=== PATIENT | male | born 1945 | race Caucasian/White ===

== ENCOUNTER 2021-07-15 09:26 | Outpatient (REF) | payer OTHER, SELFPAY ==
[2021-07-15 11:01] LABS: Hematocrit 42.3 % (42.0-52.0); Hemoglobin 13.8 g/dl (14.0-18.0); Mean Corpuscular HGB Conc 32.6 g/dl (31.0-36.0); Mean Corpuscular Hemoglobin 32.4 pg (27.0-33.0); Mean Corpuscular Volume 99.3 fL (80.0-98.0); Mean Platelet Volume 11.2 fL (9.4-12.4); Platelet Count 200 X10*3/uL (160-400); Red Blood Count 4.26 X10*6/uL (4.60-5.80); Red Cell Distribution Width 12.3 % (11.0-16.0); White Blood Count 4.9 X10*3/uL (4.8-10.8)
[2021-07-15 11:58] LABS: Alanine Aminotransferase 19 U/L (0-40); Albumin Level 4.1 g/dL (3.5-5.0); Alkaline Phosphatase 48 U/L (39-117); Anion Gap 13 (12-20); Aspartate Amino Transferase 26 U/L (5-37); Bilirubin Total 0.8 mg/dL (0.0-1.0); Blood Urea Nitrogen 11 mg/dL (9-16); Calcium 9.1 mg/dL (8.4-10.2); Carbon Dioxide 27 mmol/L (22-29); Chloride 107 mmol/L (96-108); Cholesterol 178 mg/dL; Estimated Glomerular Filt Rate > 60; Glucose Fasting 93 mg/dL (60-99); HDL Cholesterol 57 mg/dL; LDL Cholesterol Calculated 98 mg/dl; Potassium 4.5 mmol/L (3.3-5.1); Sodium 142 mmol/L (135-145); Total Protein 6.4 g/dL (6.5-8.0); Triglycerides 115 mg/dL
== END 2021-07-15 09:27 | disposition home or self-care (01) ==
LOC: HO.MANLDS 09:26
PROVIDERS: PCP Internal Medicine; Visit Provider Internal Medicine
DX: Z12.5 Encounter for screening for malignant neoplasm of prostate (principal); C61 Malignant neoplasm of prostate; I10 Essential (primary) hypertension
CPT/HCPCS: 36415; 80053; 80061; 84153; 85027

== ENCOUNTER 2023-03-13 09:35 | Outpatient (REF) | payer OTHER, SELFPAY ==
[2023-03-13 14:34] LABS: MANUAL DIFF FLAG NO
[2023-03-13 14:49] LABS: Basophils Absolute Auto 0.1 X10*3/uL (0.0-0.2); Basophils Percent Auto 1.5 % (0-2); Eosinophils Absolute Auto 0.2 X10*3/uL (0.0-0.4); Eosinophils Percent Auto 5.7 % (0-4); Hematocrit 41.8 % (42.0-52.0); Hemoglobin 13.5 g/dl (14.0-18.0); Imm Gran Abs Auto 0.01 X10*3/uL (0.00-0.03); Imm Gran Pct Auto 0.3 % (0.0-0.4); Lymphocytes Absolute Auto 0.9 X10*3/uL (1.2-4.9); Lymphocytes Percent Auto 28.3 % (20-40); Mean Corpuscular HGB Conc 32.3 g/dl (31.0-36.0); Mean Corpuscular Hemoglobin 31.6 pg (27.0-33.0); Mean Corpuscular Volume 97.9 fL (80.0-98.0); Mean Platelet Volume 10.8 fL (9.4-12.4); Monocytes Absolute Auto 0.5 X10*3/uL (0.1-1.2); Monocytes Percent Auto 15.1 % (2-11); Neutrophils Absolute Auto 1.6 x10*3/uL (2.0-8.3); Neutrophils Percent Auto 49.1 % (45-73); Platelet Count 197 X10*3/uL (160-400); Red Blood Count 4.27 X10*6/uL (4.60-5.80); Red Cell Distribution Width 12.6 % (11.0-16.0); White Blood Count 3.3 X10*3/uL (4.8-10.8)
[2023-03-13 15:27] LABS: Alanine Aminotransferase 21 U/L (0-40); Albumin Level 3.8 g/dL (3.5-5.0); Alkaline Phosphatase 55 U/L (39-117); Anion Gap 8 (12-20); Aspartate Amino Transferase 28 U/L (5-37); Bilirubin Total 0.7 mg/dL (0.0-1.0); Blood Urea Nitrogen 13 mg/dL (9-16); Carbon Dioxide 28 mmol/L (22-29); Chloride 110 mmol/L (96-108); Cholesterol 160 mg/dL; Estimated Glomerular Filt Rate > 60; Glucose Random 92 mg/dL (60-115); HDL Cholesterol 57 mg/dL; LDL Cholesterol Calculated 92 mg/dl; Potassium 4.1 mmol/L (3.3-5.1); Sodium 142 mmol/L (135-145); Total Protein 6.2 g/dL (6.5-8.0); Triglycerides 59 mg/dL
[2023-03-13 15:57] LABS: Vitamin D 25-OH Total 50.1 ng/mL (>30)
[2023-03-13 16:03] LABS: Prostate Specific Antigen 1.82 ng/mL (<0.05-4.0)
== END 2023-03-13 09:36 | disposition home or self-care (01) ==
LOC: HO.MANLDS 09:35
PROVIDERS: Visit Provider Internal Medicine
DX: Z12.5 Encounter for screening for malignant neoplasm of prostate (principal); E78.00 Pure hypercholesterolemia, unspecified
CPT/HCPCS: 36415; 80053; 80061; 82306; 84153; 85025

== ENCOUNTER 2025-06-19 09:22 | Outpatient (REF) | payer OTHER, SELFPAY ==
--- OUTSIDE RECORDS SUMMARY | 2025-06-19 10:26 | XMS_ITS | Encounter Summary ---
Author Organization [facility] Address [address] [place] [address] Phone Care Team Providers Care Offset Press Assistant Name Role Phone Sanya Barkley Primary Care Provider [phone] Encounter Details Date Type Department Care Team (Late st Contact Info) Description 03/22/2025 Procedure Pass [facility], Ct Scan - [facility] [address] [place] [address] Social History Tobacco Use Types Packs/Day Years Used Date Smoking Tobacco: Former Cigarettes Q uit: 1988 Smokeless Tobacco: Never Alcohol Use Standard Drinks/Week Comments Yes 14 (1 standard drink = 0.6 oz pu re alcohol) 2 beers per day Education Answer Date Recorded Are you interested in more education? Not on marquis e 12/19/2022 Are you concerned about learning? Not on file 12/19/2022 No 12/19/2022 No 12/19/2022 Food Answer Date Recorded Within the past 6 months we worried whether our food would run out before we got money to buy more. Never True 03/11/2025 Within the past 6 months the food we bought just didn't last and we didn't have enough money to get more. Never True Residential Stability Answer Date Recor ded What is your housing situation today? I have tho sing 03/11/2025 How many times have you move d in the past 12 months? Zero (I did not move) 03/11/2025 Paying for Meds Answer Date Recorded Do you have trouble paying for medicines? No 03/11/2025 Paying Utility Bills Answer Date Record ed Do you have trouble paying your heating or elect ricity bill? No 03/11/2025 Transportation Answer Date Recorded Has the lack of transportati on kept you from medical appointments or from getting medications? No 03/11/2025 Digital Access Answer Date Recorded No 03/11/2025 Yes 03/11/2025 Do you have reliable internet access at home? Ye s 03/11/2025 Do you have a device (e.g., phone, tablet, computer) with a working camera? Yes 03/11/2025 Intimate Partner Violence Answer Date R ecorded Are you denied basic needs s uch as food, clothing, or medical care? No 03/11/2025 In the past 12 months have y ou been in a relationship with a person who hurts, threatens, or tries to control you? No 03/11/2025 Are you denied basic needs s uch as food, clothing, or medical care? No 03/11/2025 In the past 12 months have y ou been in a relationship with a person who hurts, threatens, or tries to control you? No 03/11/2025 Sex and Gender Information Value Date Recorded Sex Assigned at Not on file Legal Sex Male 10:07 PM EDT Gender Identity Not on file Sexual Orientation Not on file documented as of this encounter Plan of Treatment Not on file documented as of this encounter Visit Diagnoses Not on filedocumented in this encounter Care Teams Offset Press Assistant Relationship Specialty Start Date End Date Sanya Barkley DO [address] [place] [address] PCP - General 06/09/17 documented as of this encounter Additional Source Comments The information contained in this document represents components of the legal health record. It is not the complete legal health record.[facility]
--- OUTSIDE RECORDS SUMMARY | 2025-06-19 10:26 | XMS_ITS | Encounter Summary ---
Author Organization [facility] Address [address] [place] [address] Phone Care Team Providers Care Health And Safety Specialist Name Role Phone Sanya Barkley Primary Care Provider [phone] Encounter Details Date Type Department Care Team (Late st Contact Info) Description 05/01/2025 Procedure Pass OR Admitting Dept - Virtual Department [address] [place] [address] Social History Tobacco Use Types Packs/Day Years [...] as food, clothing, or medical care? No 05/01/2025 In the past 12 months have y ou been in a relationship with a person who hurts, threatens, or tries to control you? No 05/01/2025 Are you denied basic needs s uch as food, clothing, or medical care? No 05/01/2025 In the past 12 months have y ou been in a relationship with a person who hurts, threatens, or tries to control you? No 05/01/2025 Sex and Gender Information Value Date Recorded Sex Assigned at Not on file Legal Sex Male 10:07 PM EDT Gender Identity Not on file Sexual Orientation Not on file documented as of this encounter Plan of Treatment Not on file documented as of this encounter Visit Diagnoses Not on filedocumented in this encounter Care Teams Health And Safety Specialist Relationship Specialty Start Date End Date Sanya Barkley DO [address] [place] [address] PCP - General 06/09/17 documented as of this encounter Additional Source Comments The information contained in this document represents components of the legal health record. It is not the complete legal health record.[facility]
--- OUTSIDE RECORDS SUMMARY | 2025-06-19 10:26 | XMS_ITS | Encounter Summary ---
Author Organization [facility] Address [address] [place] [address] Phone Care Team Providers Care Blade Operator Name Role Phone Sanya Barkley DO Primary Care Provider [phone] Encounter Details Date Type Department Care Team (Late st Contact Info) Description 08/03/2018 Ancillary Orders Virtual Department [address] [place] [address] Nehal Joseph PA-C [address] [place] [address] [email or web address] Pain and swelling of left lower leg Social History Tobacco Use Types Packs/Day Years Used Date Smoking Tobacco: Never Assessed Sex and Gender Information Value Date Recorded Sex Assigned at Not on file Legal Sex Male 10:07 PM EDT Gender Identity Not on file Sexual Orientation Not on file documented as of this encounter Plan of Treatment Not on file documented as of this encounter Results * US Lower Extremity Veins Duplex (Left) (08/03/2018 4:47 PM EST) Anatomical Region Laterality Modality Hip Left, Thigh Left, Knee L eft, Leg Left, Ankle Left, Foot Left Ultrasound 08/03/2018 5:33 PM EST Impressions 08/03/2018 5:34 PM EST No evidence of DVT. POS [id number] POS [id number] Narrative 08/03/2018 5:34 PM EST Comparison:None Combined real-time, color flow and Doppler evaluation of the deep venous system of the left leg shows readily compressible veins with a normal Doppler waveform and easily elicited augmentation from the groin through the trifurcation vessels into the mid calf. No popliteal cyst is apparent. Procedure Note José Miguel Stewart MD - 08/03/2018 Comparison:None Combined real-time, color flow and Doppler evaluation of the deep venoussystem of the left leg shows readily compressible veins with a normalDoppler waveform and easily elicited augmentation from the groin throughthe trifurcation vessels into the mid calf. No popliteal cyst is apparent. IMPRESSION: No evidence of DVT. POS [id number] POS [id number] November Opal AGUERO CV US VASCULAR Final Result documented in this encounter Visit Diagnoses Diagnosis Pain and swelling of left lower leg Pain and swelling of left lower leg documented in this encounter Care Teams Blade Operator Relationship Specialty Start Date End Date Sanya Barkley DO [address] [place] [address] [email or web address] PCP - General 06/09/17 documented as of this encounter Additional Source Comments The information contained in this document represents components of the legal health record. It is not the complete legal health record.[facility]
--- OUTSIDE RECORDS SUMMARY | 2025-06-19 10:26 | XMS_ITS | Encounter Summary ---
Author Organization [facility] Address [address] [place] [address] Phone Care Team Providers Care Installation Coordinator Name Role Phone Sanya Barkley DO Primary Care Provider [phone] Encounter Details Date Type Department Care Team ([facility] st Contact Info) Description 04/28/2025 Transcribe Orders [facility] Pharmacy Department Virtual Deparment [address] [place] [address] Sanya Barkley DO [address] [facility] [address] [place] [address] [email or web address] Social History Tobacco Use Types Packs/Day Years [...] on filedocumented in this encounter Care Teams Installation Coordinator Relationship Specialty Start Date End Date Sanya Barkley DO [address] [place] [address] PCP - General 06/09/17 documented as of this encounter Additional Source Comments The information contained in this document represents components of the legal health record. It is not the complete legal health record.[facility]
--- OUTSIDE RECORDS SUMMARY | 2025-06-19 10:26 | XMS_ITS | Encounter Summary ---
Author Organization [facility] Address [address] [place] [address] Phone Care Team Providers Care Crane Oiler Name Role Phone Sanya Barkley DO Primary Care Provider [phone] Encounter Details Date Type Department Care Team ([facility] st Contact Info) Description 10/04/2018 Ancillary Orders Virtual Department [address] [place] [address] Sanya Barkley DO [address] [facility] [place] [address] [place] [address] Screening for AAA (abdominal aortic aneurysm); Encounter for screening for cardiovascular disorders Social History Tobacco Use Types Packs/Day Years Used Date Smoking Tobacco: Never Assessed Sex and Gender Information Value Date Recorded Sex Assigned at Not on file Legal Sex Male 10:07 PM EDT Gender Identity Not on file Sexual Orientation Not on file documented as of this encounter Plan of Treatment Not on file documented as of this encounter Results * US Abdominal Aortic Screening (11/05/2018 8:03 AM EDT) Anatomical Region Laterality Modality Abdomen Ultrasound 11/05/2018 8:36 AM EDT Impressions 11/05/2018 8:37 AM EDT No evidence of abdominal aortic aneurysm. POS - [id number] Narrative 11/05/2018 8:37 AM EDT Screening study of the aorta is performed. There does not appear to be aneurysmal dilatation of the aorta with aorta measuring approximately 1.7 cm along its visualized length. Both common iliac arteries are measured at approximately 1 centimeter in diameter along the proximal portions. Procedure Note Nita Slater MD - 11/05/2018 Screening study of the aorta is performed. There does not appear to beaneurysmal dilatation of the aorta with aorta measuring approximately 1.7cm along its visualized length. Both common iliac arteries are measured atapproximately 1 centimeter in diameter along the proximal portions. IMPRESSION: No evidence of abdominal aortic aneurysm. POS - [id number] us Sanya Barkley DO IMG US ABDOMEN Final Result documented in this encounter Visit Diagnoses Diagnosis Screening for AAA (abdominal aortic aneurysm) Screening for other and unspecified cardiovascular conditions Encounter for screening for cardiovascular disorders Screening for AAA (abdominal aortic aneurysm) Screening for other and unspecified cardiovascular conditions Encounter for screening for cardiovascular disorders documented in this encounter Care Teams Crane Oiler Relationship Specialty Start Date End Date Sanya Barkley DO [address] [place] [address] PCP - General 06/09/17 documented as of this encounter Additional Source Comments The information contained in this document represents components of the legal health record. It is not the complete legal health record.[facility]
--- OUTSIDE RECORDS SUMMARY | 2025-06-19 10:27 | XMS_ITS | Encounter Summary ---
Author Organization [facility] Address [address] [facility] [address] [place] [address] Phone Care Team Providers Care Oak Tanner Name Role Phone Sanya Barkley DO Primary Care Provider [phone] Encounter Details Date Type Department Care Team (Late st Contact Info) Description 04/09/2020 Ancillary Orders Virtual Department [address] [place] [address] Elena Louie PA [address] [facility] [place] [address] Neck mass Social History Tobacco Use Types Packs/Day Years Used Date Smoking Tobacco: Former Cigarettes Q uit: 1989 Smokeless Tobacco: Never Alcohol Use Standard Drinks/Week Comments Yes 14 (1 standard drink = 0.6 oz pu re alcohol) 2 beers per day Sex and Gender Information Value Date Recorded Sex Assigned at Not on file Legal Sex Male 10:07 PM EDT Gender Identity Not on file Sexual Orientation Not on file documented as of this encounter Plan of Treatment Not on file documented as of this encounter Visit Diagnoses Diagnosis Neck mass Swelling, mass, or lump in head and neck documented in this encounter Care Teams Oak Tanner Relationship Specialty Start Date End Date Sanya Barkley DO [address] [place] [address] [place] [address] PCP - General 06/09/17 documented as of this encounter Additional Source Comments The information contained in this document represents components of the legal health record. It is not the complete legal health record.[facility]
--- OUTSIDE RECORDS SUMMARY | 2025-06-19 10:27 | XMS_ITS | Encounter Summary ---
Author Organization [facility] Address [address] [place] [address] Phone Care Team Providers Care House Designer Name Role Phone Sanya Barkley Primary Care Provider [phone] Encounter Details Date Type Department Care Team (Late st Contact Info) Description 04/12/2020 Ancillary Orders Virtual Department [address] [place] [address] Elena Louie PA [address] [facility] [place] [address] Neck mass Social History Tobacco Use Types [...] as of this encounter Results * US Thyroid Gland (04/12/2020 1:46 PM EDT) Anatomical Region Laterality Modality Neck, Head, Chest Ultrasound 04/12/2020 2:41 PM EDT Impressions 04/12/2020 2:46 PM EDT Area of palpable abnormality on the right appears to correspond to a submandibular lymph node. Normal thyroid gland. Narrative 04/12/2020 2:46 PM EDT US THYROID GLAND TECHNIQUE: Ultrasound of the thyroid. COMPARISON: FINDINGS: Right Thyroid: The right lobe measures 4.0 cm in sagittal dimension. Small lesion consistent with a lymph node with fatty hilum is seen in the right submandibular area, reportedly corresponding to the area of palpable abnormality measuring 1.7 SAG x0.7 AP x1.6 TR centimeters in size Left Thyroid: The left lobe measures 4.7 cm in sagittal dimension. No left sided adenopathy is detected. Parathyroid: A parathyroid adenoma is not identified. Procedure Note Deric Benavides MD - 04/12/2020 US THYROID GLAND TECHNIQUE: Ultrasound of the thyroid. COMPARISON: FINDINGS: Right Thyroid: The right lobe measures 4.0 cm in sagittal dimension. Small lesion consistent with a lymph node with fatty hilum is seen in theright submandibular area, reportedly corresponding to the area of palpableabnormality measuring 1.7 SAG x0.7 AP x1.6 TR centimeters in size Left Thyroid: The left lobe measures 4.7 cm in sagittal dimension. No left sided adenopathy is detected. Parathyroid: A parathyroid adenoma is not identified. IMPRESSION: Area of palpable abnormality on the right appears to correspond to asubmandibular lymph node. Normal thyroid gland. Elena NAVARRO IMG US THYROID Final Resul t documented in this encounter Visit Diagnoses Diagnosis Neck mass Swelling, mass, or lump in head and neck Neck mass Swelling, mass, or lump in head and neck documented in this encounter Care Teams House Designer Relationship Specialty Start Date End Date Sanya Barkley DO [address] [place] [address] PCP - General 06/09/17 documented as of this encounter Additional Source Comments The information contained in this document represents components of the legal health record. It is not the complete legal health record.[facility]
--- OUTSIDE RECORDS SUMMARY | 2025-06-19 10:27 | XMS_ITS | Encounter Summary ---
Author Organization [facility] Address [address] [place] [address] Phone Care Team Providers Care Film Processing Shift Supervisor Name Role Phone Sanya Barkley DO Primary Care Provider [phone] Reason for Referral * MRI/CAT Scan - Closed Specialty Diagnoses / Procedures Referred By Melvin galvan Referred To Contact Radiology Diagnoses Other nonspecific abnormal finding of lung field Procedures CT Chest CHG DIAGNOSTIC COMPUTED TOMOGRAPHY THORAX C-/C+ CHG DIAGNOSTIC COMPUTED TOMOGRAPHY THORAX W/CONTRAST CHG DIAGNOSTIC COMPUTED TOMOGRAPHY THORAX W/O CNTRST NJ HALEY CT TISS CHARAC I&R W/CNCRNT CT EXAM Sanya Barkley DO [address] [facility] [place] [address] Phone: tel: fax: [email or web address] Referral ID Status Reason Start Date Expiration Date Visits Re quested Visits Authorized [id number] Closed 05/04/2025 07/03/2025 1 1 Encounter Details Date Type Department Care Team (Late st Contact Info) Description 05/05/2025 Transcribe Orders Virtual Department [address] [place] [address] Sanya Barkley DO [address] [facility] [place] [address] [email or web address] Other nonspecific abnormal finding of lung field (Primary Dx) Social History Tobacco Use Types Packs/Day Years [...] documented as of this encounter Results * CT CHEST WITHOUT CONTRAST (05/30/2025 8:25 AM EDT) Anatomical Region Laterality Modality Chest Computed Tomogra phy 06/01/2025 2:03 PM EDT Impressions 06/01/2025 2:10 PM EDT Near interval resolution of left lower lobe groundglass opacity. Unchanged 8 mm groundglass opacity in the medial right upper lobe. Scattered 2-3 mm calcified pulmonary nodules, benign. Narrative 06/01/2025 2:[address] CHEST WITHOUT CONTRAST Referring clinician's provided indication for this examination in [facility]: Outside Radiology Order; opacity of lung on imaging study TECHNIQUE: Multidetector CT of the chest was performed without intravenous contrast using tailored dose modulation. COMPARISON: 03/29/25 FINDINGS: Devices/Tubes/Lines: None. Lungs: Near interval resolution of left lower lobe groundglass opacity. 8 mm groundglass opacity in the medial right upper lobe (4/86), unchanged. Scattered 2-3 mm calcified nodules. Central airways are patent. Pleura: No pleural effusion or pneumothorax. Mediastinum: Heart size is normal. Mild coronary artery calcifications. Calcifications of the aortic valve and mitral valve annulus. Thyroid gland is within normal limits. Lymph Nodes: No enlarged supraclavicular, axillary, mediastinal, or hilar lymph nodes. Upper Abdomen: Colonic diverticulosis. Chest Wall: No chest wall mass. Bones: Degenerative changes affect the visualized skeleton. Procedure Note David Fish MD - 06/01/2025 CT CHEST WITHOUT CONTRAST Referring clinician's provided indication for this examination in [facility]:Outside Radiology Order; opacity of lung on imaging study TECHNIQUE: Multidetector CT of the chest was performed without intravenouscontrast using tailored dose modulation. COMPARISON: 03/29/25 FINDINGS: Devices/Tubes/Lines: None. Lungs: Near interval resolution of left lower lobe groundglass opacity. 8mm groundglass opacity in the medial right upper lobe (4/86), unchanged.Scattered 2-3 mm calcified nodules. Central airways are patent. Pleura: No pleural effusion or pneumothorax. Mediastinum: Heart size is normal. Mild coronary artery calcifications.Calcifications of the aortic valve and mitral valve annulus. Thyroid glandis within normal limits. Lymph Nodes: No enlarged supraclavicular, axillary, mediastinal, or hilarlymph nodes. Upper Abdomen: Colonic diverticulosis. Chest Wall: No chest wall mass. Bones: Degenerative changes affect the visualized skeleton. IMPRESSION: Near interval resolution of left lower lobe groundglass opacity. Unchanged 8 mm groundglass opacity in the medial right upper lobe. Scattered 2-3 mm calcified pulmonary nodules, benign. us Sanya Barkley DO IMG CT CHEST Final Result documented in this encounter Visit Diagnoses Diagnosis Other nonspecific abnormal finding of lung field- Primary Other nonspecific abnormal finding of lung field documented in this encounter Care Teams Film Processing Shift Supervisor Relationship Specialty Start Date End Date Sanya Barkley DO [address] [place] [address] [email or web address] PCP - General 06/09/17 documented as of this encounter Additional Source Comments The information contained in this document represents components of the legal health record. It is not the complete legal health record.[facility]
--- OUTSIDE RECORDS SUMMARY | 2025-06-19 10:27 | XMS_ITS | Encounter Summary ---
Author Organization [facility] Address [address] [place] [address] Phone Care Team Providers Care Civil Structural Designer Name Role Phone Sanya Barkley Primary Care Provider [phone] Encounter Details Date Type Department Care Team (Late st Contact Info) Description 05/05/2025 Procedure Pass [facility], Ct Scan - [facility] [address] [place] [address] Social History Tobacco Use Types Packs/Day Years [...] on filedocumented in this encounter Care Teams Civil Structural Designer Relationship Specialty Start Date End Date Sanya Barkley DO [address] [place] [address] PCP - General 06/09/17 documented as of this encounter Additional Source Comments The information contained in this document represents components of the legal health record. It is not the complete legal health record.[facility]
--- OUTSIDE RECORDS SUMMARY | 2025-06-19 10:27 | XMS_ITS | Data Portability ---
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) MDM MODERATE MUST MEET 2 OUT OF 3 ELEMENTS: PROBLEMS, DATA OR RISK ELEMENT 1: PROBLEMS ADDRESSED 1 OR MORE CHRONIC ILLNESS WITH EXACERBATION OR 2 OR MORE STABLE CHRONIC ILLNESSES OR 1 UNDIAGNOSED NEW PROBLEM OR 1 ACUTE ILLNESS W/SYMPTOMS OR 1 ACUTE COMPLICATED INJURY ELEMENT 2: DATA MUST MEET 1 OF 3 CATEGORIES CATEGORY 1: REVIEW OF PRIOR EXTERNAL NOTES, REVIEW OF RESULTS, ORDERING OF EACH TEST, ASSESSMENT REQUIRING INDEPENDENT HISTORIAN OR CATEGORY 2: INDEPENDENT INTERPRETATION OF TESTS BY ANOTHER PHYSICIAN OR SPECIALIST OR CATEGORY 3: DISCUSSION OF MGT OR TEST INTERPRETATION W/EXTERNAL PHYSICIAN OR SPECIALIST ELEMENT 3: RISK RISK OF COMPLICATIONS AND/OR MORBIDITY OR MORTALITY OF PATIENT MANAGEMENT PROVIDER MUST THOROUGHLY DOCUMENT EACH ELEMENT THAT IS COVERED Not available 05/23/2024 14:06:54 09/14/2024 09/14/2024 [id number] [place] [id number] (MOLD MAKER APPRENTICE) MDM MODERATE MUST MEET 2 OUT OF 3 ELEMENTS: PROBLEMS, DATA OR RISK ELEMENT 1: PROBLEMS ADDRESSED 1 OR MORE CHRONIC ILLNESS WITH EXACERBATION OR 2 OR MORE STABLE CHRONIC ILLNESSES OR 1 UNDIAGNOSED NEW PROBLEM OR 1 ACUTE ILLNESS W/SYMPTOMS OR 1 ACUTE COMPLICATED INJURY ELEMENT 2: DATA MUST MEET 1 OF 3 CATEGORIES CATEGORY 1: REVIEW OF PRIOR EXTERNAL NOTES, REVIEW OF RESULTS, ORDERING OF EACH TEST, ASSESSMENT REQUIRING INDEPENDENT HISTORIAN OR CATEGORY 2: INDEPENDENT INTERPRETATION OF TESTS BY ANOTHER PHYSICIAN OR SPECIALIST OR CATEGORY 3: DISCUSSION OF MGT OR TEST INTERPRETATION W/EXTERNAL PHYSICIAN OR SPECIALIST ELEMENT 3: RISK RISK OF COMPLICATIONS AND/OR MORBIDITY OR MORTALITY OF PATIENT MANAGEMENT PROVIDER MUST THOROUGHLY DOCUMENT EACH ELEMENT THAT IS COVERED Not available 09/14/2024 09:53:31 03/06/2025 03/06/2025 [id number] [place] [id number] (MOLD MAKER APPRENTICE) MDM MODERATE MUST MEET 2 OUT OF 3 ELEMENTS: PROBLEMS, DATA OR RISK ELEMENT 1: PROBLEMS ADDRESSED 1 OR MORE CHRONIC ILLNESS WITH EXACERBATION OR 2 OR MORE STABLE CHRONIC ILLNESSES OR 1 UNDIAGNOSED NEW PROBLEM OR 1 ACUTE ILLNESS W/SYMPTOMS OR 1 ACUTE COMPLICATED INJURY ELEMENT 2: DATA MUST MEET 1 OF 3 CATEGORIES CATEGORY 1: REVIEW OF PRIOR EXTERNAL NOTES, REVIEW OF RESULTS, ORDERING OF EACH TEST, ASSESSMENT REQUIRING INDEPENDENT HISTORIAN OR CATEGORY 2: INDEPENDENT INTERPRETATION OF TESTS BY ANOTHER PHYSICIAN OR SPECIALIST OR CATEGORY 3: DISCUSSION OF MGT OR TEST INTERPRETATION W/EXTERNAL PHYSICIAN OR SPECIALIST ELEMENT 3: RISK RISK OF COMPLICATIONS AND/OR MORBIDITY OR MORTALITY OF PATIENT MANAGEMENT PROVIDER MUST THOROUGHLY DOCUMENT EACH ELEMENT THAT IS COVERED Not available 03/06/2025 10:30:47 Plan of Treatment Reminders Order Date Submit Date Provider Last Modified By Organization Details Last Modified Time Details Appointments FOLLOW UP 15 2024 09:00A M DR SEAY Not available Not available Not available Lab CMP, serum or plasma 2023 024 [facility], [address] [place] [address], [id number], 05/23/2024 14:19:03 CBC 2023 024 [facility], [address] [place] [address], [id number], 08/31/2024 08:20:32 PSA, serum or plasma 2023 024 [facility], [address] [place] [address], [id number], 05/23/2024 14:19:03 lipid panel, blood 2023 024 [facility], [address] [place] [address], [id number], 05/23/2024 14:19:03 Referral dermatolo gist referral 2024 025 arpita Prado MD, [address], [place], [address], 04/03/2025 09:21:27 gastroent erologist referral - has appt on sep [id number] 025 arpita Farrar MD, [address] [place] [address], [address], 09/16/2024 09:07:39 Procedures None recorded. Surgeries None recorded. Imaging None recorded. Medication Orders None recorded. Patient TargetsNo targets recorded. 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 [email or web address] [facility] (Emergency Room) [address] [place], [address], 03/12/2025 04:57:24 03/14/20 25 03/12/2025 CT, chest , w/o contr ast No observ ation record ed. [email or web address] [facility] [address], [address], 03/14/2025 10:57:45 05/08/20 25 03/29/2025 CT, chest , w/o contr ast No observ ation record ed. [email or web address] [facility] [address], [place], [address], 05/08/2025 15:38:07 06/01/20 25 05/30/2025 CT, chest , w/o contr ast No observ ation record ed. [email or web address] [facility] [address] [facility] [address], [place], [address], 06/02/2025 09:25:06 Result Notes None recorded. Problems Name Problem SNOMED Code Status Onset Date Resolution Date Notes Provider Name and Address Organization Details Recorded Time Primary erectile dysfunctio n 416755160 Active 2017 Not Available [facility] 13:57:09 Hyperchole sterolemia 36398910 Active 2017 Not Available [facility] 13:57:09 Carcinoma of prostate 008079621 Active 2017 Not Available [facility] 13:57:09 Essential hypertensi on 21016978 Active 2018 Not Available [facility] 13:57:09 Multiple actinic keratoses 184145403 Active 2021 Sanya Seay, [address] [place] [address], [phone], [facility] 5 10:31:19 Pterygium 61596152 Active 2023 Sanya Seay DO [address] [place] [address], [phone], [facility] 4 14:03:13 Abnormal findings on diagnostic imaging of lung 451243557 Active 2024 Sanya Seay DO [address] [place] [address], [phone], [facility] 5 16:53:51 Neoplasm of urinary bladder 011386082 Active 2024 Sanya Seay DO [address] [place] [address], [phone], [facility] 5 11:02:44 Problem Notes None recorded. Medical Equipment None Reported. Allergies No known drug allergies Medications Name Sig Start Date Stop Date Status Note LastModified by Organization Details LastModified Time amoxicillin 500 mg capsule TAKE 1 CAPSULE BY MOUTH THREE TIMES DAILY UNTIL GONE 01/18 completed Not Available Not Available Not Available doxycycline hyclate 100 mg capsule 07/28 completed Not Available Not Available Not Available azithromyci n 250 mg tablet TAKE 2 TABLETS BY MOUTH ON DAY 1, AND THEN TAKE 1 TABLET BY MOUTH ONCE A DAY ON DAY 2 THROUGH DAY 5 01/18 completed Not Available Not Available Not Available ofloxacin 0.3 % eye drops INSTILL 1 DROP INTO LEFT EYE EVERY 3 HOURS, START THE DAY BEFORE SURGERY WHILE AWAKE 04/21 completed Not Available Not Available Not Available hydrocodone 5 mg-acetamin ophen 325 mg tablet TAKE 1 TO 2 TABLETS BY MOUTH EVERY 4 TO 6 HOURS NEEDED (MAX 10 TABLETS PER DAY) 01/18 completed Not Available Not Available Not Available lisinopril 20 mg tablet TAKE 1 TABLET BY MOUTH EVERY DAY 2024 active Not Available Not Available Not Avai lable fluorouraci l 5 % topical cream PLEASE SEE ATTACHED FOR DETAILED DIRECTION S 01/18 completed Not Available Not Available Not Available sildenafil 100 mg tablet Take 1 tablet every day by oral route as needed for 90 days. 01/18 completed Not Available Not Available Not Available amoxicillin 500 mg tablet Take 1 tablet every 8 hours by oral route for 10 days. 08/15 completed Not Available Not Available Not Available simvastatin 40 mg tablet TAKE 1 TABLET BY MOUTH ONCE A DAY 2024 active Not Available Not Available Not Avai lable ketorolac 0.5 % eye drops INSTILL 1 DROP INTO RIGHT EYE THREE TIMES DAILY, START 2 DAYS BEFORE SURGERY 04/07 completed Not Available Not Available Not Available prednisolon e acetate 1 % eye drops,suspe nsion INSTILL 1 DROP INTO LEFT EYE 4 TIMES DAILY, TO START AFTER SURGERY 09/14 completed Not Available Not Available Not Available erythromyci n 5 mg/gram (0.5 %) eye ointment APPLY A SMALL OF OINTMENT INTO RIGHT EYE TWICE DAILY 09/14 completed Not Available Not Available Not Available lisinopril 10 mg tablet Take 1 tablet every day by oral route for 90 days. 04/09 completed Not Available Not Available Not Available ibuprofen 600 mg tablet TAKE 1 TABLET BY MOUTH EVERY 6 HOURS NEEDED FOR PAIN 01/18 completed Not Available Not Available Not Available peg 3350-electr olytes 236 gram-22.74 gram-6.74 gram-5.86 gram solution TAKE DIRECTED active Not Available Not Available No t Available Fluad 65yr up(PF)45 mcg(15 mcgx3)/0.5 mL intramuscul ar syringe 07/28 completed Not Available Not Available Not Available Fluad 65yr up(PF)45 mcg(15 mcgx3)/0.5 mL intramuscul ar syringe 07/28 completed Not Available Not Available Not Available Fluzone High-Dose (PF) 180 mcg/0.5 mL intramuscul ar syringe 02/06 completed Not Available Not Available Not Available Fluad Quad (6 5yr up)(PF) 60 mcg (15 mcg x 4)/0.5mL IM syringe ADM 0.5ML IM UTD 08/15 completed Not Available Not Available Not Available Vitals Date Recorded Body height Body mass index (BMI) Body weight Heart rate Oxygen saturation Oxygen saturation in Arterial blood by Pulse oximetry Systolic And Diastolic Provider Name and Address Organization Details Last Updated DateTime 5 168.91 cm 22.4 kg/m2 58179.5 2 g 77 /min 98 % 98 % 142/72 mm[Hg] Gabby Valdivia [facility] 5 09:40:24 Date Recorded Body height Body mass index (BMI) Body weight Heart rate Oxygen saturation Oxygen saturation in Arterial blood by Pulse oximetry Systolic And Diastolic Provider Name and Address Organization Details Last Updated DateTime 5 168.91 cm 22.4 kg/m2 90731.5 2 g 62 /min 100 % 100 % 130/78 mm[Hg] Gabby Valdivia [facility] 5 10:19:33 Date Recorded Body height Body mass index (BMI) Body weight Oxygen saturation Oxygen saturation in Arterial blood by Pulse oximetry Heart rate Systolic And Diastolic Provider Name and Address Organization Details Last Updated DateTime 5 168.91 cm 22.2 kg/m2 33158.7 8 g 100 % 100 % 59 /min 124/72 mm[Hg] Omaira Bach [facility] 5 10:48:57 Date Recorded Body height Body mass index (BMI) Body weight Oxygen saturation Oxygen saturation in Arterial blood by Pulse oximetry Heart rate Systolic And Diastolic Provider Name and Address Organization Details Last Updated DateTime 5 168.91 cm 22.5 kg/m2 21480.6 8 g 98 % 98 % 63 /min 124/70 mm[Hg] Omaira Garciaalcon [facility] 5 14:05:56 Date Recorded Body height Body mass index (BMI) Body weight Heart rate Oxygen saturation Oxygen saturation in Arterial blood by Pulse oximetry Systolic And Diastolic Provider Name and Address Organization Details Last Updated DateTime 4 168.91 cm 21.9 kg/m2 55013.7 5 g 74 /min 97 % 97 % 130/60 mm[Hg] Gabby Valdivia [facility] 4 14:00:28 Social History Question Answer Notes LastModified by Organizat ion Details LastModified Time Tobacco Smoking Status [facility] 15:15:27 What Was The Date Of Your Most Recent Tobacco Screening? 04/21/2025 [email or web address] Information not available 04/21/2025 Sex: Unknown Functional Status Question Answer Note LastModified by Organization D etails LastModified Time Do you or have you ever used any other forms of tobacco or nicotine? No Information not available 01/29/2022 Mental Status None recorded. Family History Nothing Reported. Medical History No medical history recorded. Immunizations Vaccine Type Date Status Note Provider Nam e and Address Organization Details Recorded Time Influenza, split virus, quadrivalent, preservative 05/24/20 21 completed Sanya Seay, DO [address] [place] [address], [place], [address], [facility] 05/25/2021 14:53:52 COVID-19, mRNA, LNP-S, PF, 30 mcg/0.3 mL dose 06/04/20 21 completed Cathy jessica [facility] 06/05/2021 08:21:07 COVID-19, mRNA, LNP-S, PF, 30 mcg/0.3 mL dose 11/24/19 22 completed Cathy Nance [facility] 11/25/2021 08:13:22 influenza, intradermal, quadrivalent, preservative free 05/10/20 22 completed Lizzie Cardona [facility] 05/12/2022 08:29:41 COVID-19, mRNA, LNP-S, PF, 30 mcg/0.3 mL dose 05/23/20 22 completed Danae Nicolas [facility] 05/26/2022 08:30:12 Influenza, split virus, quadrivalent, preservative 07/20/20 18 completed Cathy Nance [facility] 07/21/2018 16:44:22 Influenza, split virus, quadrivalent, preservative 05/02/20 20 completed Sanya Seay DO [address] [place] [address], [address], [facility] 05/03/2020 14:58:58 COVID-19, mRNA, LNP-S, PF, 30 mcg/0.3 mL dose 10/31/19 21 completed Cathy Nance [facility] 01/30/2021 09:05:55 COVID-19, mRNA, LNP-S, PF, 30 mcg/0.3 mL dose 11/21/19 21 completed Cathy Nance [facility] 01/30/2021 09:06:02 pneumococcal polysaccharide PPV23 03/04/20 13 completed Cathy Nance [facility] 01/30/2021 09:06:21 Tdap 09/21/19 10 completed Cathy Nance [facility] 01/30/2021 09:06:33 Past Encounters Encounter ID Performer Location Encounter Start Date Encounter Closed Date Diagnosis/Indication Diagnosis SNOMED-CT Code Diagnosis ICD10 Code Diagnosis IMO Codes Diagnosis Note [id number] Sanya Seay DO [facility] [address] [facility],[place] [address] 07/28/2018 15:08:20 07/28/2018 16:07:53 Pain of hip region 82152194 M25.559 rather thigh pain, as the joint is not affected ice/heat/ rest/ NSAIDS Hypercholesterolemia 136 98234 E78.00 will check ck in pt with statin treatment as long as normal will treat as above if elevated will change from simvastati n to crestor or pravastati n depending on the [place] [id number] Sanya Seay [facility] [address] [facility],[place] [address] 08/03/2018 14:42:58 08/03/2018 16:12:14 Hypercholesterolemia 51979301 E78.00 statin was d/c'd due to elevated cpk Muscle pain 92398697 M79 .10 left thigh pain of unknown origin ? statin he had an elevated ck, will hold statin and recheck ck in 1 month Edema of l ower extremity 617933068 R60.0 worrisome for dvt, though no apparent provoking factors [id number] Sanya Seay [facility] [address],[place] [address] 10/04/2018 09:53:37 10/04/2018 10:22:12 Hypercholesterolemia 10356380 E78.00 will restart his cholestero l med car call if any sudden changes from the med Abdominal aortic aneurysm screening 441682720 Z13.6 Hepatitis C screening 41 0002664 Z11.59 [id number] Sanya Seay [facility] [address] [facility],[place] [address] 03/02/2019 09:19:45 03/02/2019 12:07:32 Hypercholesterolemia 27207634 E78.00 will restart his cholestero l med car call if any sudden changes from the med Carcinoma of prostate 25 8284057 C61 has been following urologist as is necessary Foot callus 991917410 L8 4 having prgressive pain to bottom of the foot [id number] Sanya Seay [facility] [address] [place] [address],[facility] [place] [address] 03/30/2019 15:51:25 03/30/2019 16:47:31 Essential hypertension 31347874 I10 [id number] Sanya Seay [facility] [address] [place] [address],[place] [address] 04/22/2019 08:50:57 04/22/2019 09:27:40 Essential hypertension 35636510 I10 [id number] Sanya SanchezRosie Seay [facility] [address] [facility] [address] 07/06/2019 14:56:35 07/06/2019 15:20:20 Hypercholesterolemia 39054385 E78.00 restarted statin, no longer having muscle aching Essential hypertension 89914043 I10 Snoring symptoms 4859550 00 R06.83 [id number] Sanya SanchezRosie Zakiti [facility] [address] [facility] [address] 02/07/2020 14:12:19 02/07/2020 14:49:01 Adult health examination 830139533 Z00.00 reviewed lab and is excellent Active or passive immunization 370462203 Z23 [id number] Sanya Seay [facility] [address] [facility] [address] 04/09/2020 10:43:12 04/09/2020 11:10:06 Localized swelling, mass and lump, neck 764805515 R22.1 will check thyroid and lymph nodes and see if anything related to that fu after results Essential hypertension 24867172 I10 BP excellent well controlled [id number] Sanya Seay [facility] [address] [facility] [address] 04/20/2020 10:30:55 04/20/2020 11:15:09 Lymphadenopathy 29144975 R59.1 will treat for possible dental infection will start him on flonase for allergies as that may be the culprit as well Essential hypertension 00643850 I10 BP excellent well controlled [id number] Sanya Seay [facility] [address] [facility] [address],[place] [address] 08/15/2020 08:51:33 08/15/2020 09:20:54 Essential hypertension 42790311 I10 very impressive for his home bps and has no limitation s exercises 3 miles on treadmill and lifts wgts Hypercholesterolemia 136 25980 E78.00 will restart his cholestero l med car call if any sudden changes from the med [id number] Sanya Seay DO [facility] [address] [facility], [place] [address] 01/30/2021 09:11:11 01/30/2021 09:32:14 Hypercholesterolemia 83832205 E78.00 will restart his cholestero l med car call if any sudden changes from the med Essential hypertension 10182541 I10 very impressive for his home bps and has no limitation s exercises 3 miles on treadmill and lifts [facility] Carcinoma of prostate 25 1578843 C61 has been following urologist as is necessary [id number] Sanya Seay DO [facility] [address] [facility], [place] [address] 07/31/2021 09:09:50 07/31/2021 09:45:33 Essential hypertension 10059277 I10 very impressive for his home bps and has no limitation s exercises 3 miles on treadmill and lifts [facility] Hypercholesterolemia 136 26514 E78.00 will restart his cholestero l med car call if any sudden changes from the med Primary er ectile dysfunction 535143023 N52.9 [id number] Sanya Seay [facility] [address] [facility], [place] [facility] [address] 01/29/2022 09:25:38 01/29/2022 13:52:36 Hypercholesterolemia 42383428 E78.00 will restart his cholestero l med car call if any sudden changes from the med Essential hypertension 15530201 I10 very impressive for his home bps and has no limitation s exercises 3 miles on treadmill and lifts [facility] Carcinoma of prostate 25 5982294 C61 has been following urologist as is necessary Advance care planning 71 1752701 Z71.89 Active or passive immunization 322289122 Z23 patient advised of due vaccines (tdap, pneu 13, shingles) [id number] Sanya Seay [facility] [address] [facility] [address], [place] [address] 07/30/2022 09:08:14 07/30/2022 10:10:26 Hypercholesterolemia 70482834 E78.00 will restart his cholestero l med will call if any sudden changes from the med Essential hypertension 89494037 I10 very impressive for his home bps and has no limitation s he still exercises 3 miles on treadmill and lifts wgts Multiple a ctinic keratoses 382037125 L57.0 [id number] Sanya Seay [facility] [address] [facility] [address] 03/27/2023 07:57:24 03/27/2023 15:21:24 Hypercholesterolemia 20375968 E78.00 will restart his cholestero l med will call if any sudden changes from the med Essential hypertension 56598809 I10 very impressive for his home bps and has no limitation s he still exercises 3 miles on treadmill and lifts wgts Carcinoma of prostate 25 1228135 C61 has been following urologist as is necessary [id number] Sanya Seay [facility] [address] [facility] [address] 01/19/2024 13:23:18 01/19/2024 14:36:04 Pre-surgery evaluation 365619355 Z01.818 Per the ACC cardiac risk stratifica tion this patient is deemed cleared for the proposed cataract and pterygium removal procedures pt understand s to continue his usual medication s . [id number] Sanya Seay [facility] [address] [facility] [address] 05/23/2024 08:25:39 05/23/2024 14:13:44 Essential hypertension 15757316 I10 very impressive for his home bps and has no limitation s he still exercises 3 miles on treadmill and lifts wgts Hypercholesterolemia 136 15183 E78.00 cholestero l med no problems shruthitadonny n will call if any sudden changes from the med Carcinoma of prostate 25 1826473 C61 has been following urologist as is necessary but for now he is done [id number] Sanya Seay [facility] [address] [facility],[place] [address] 09/14/2024 09:30:22 09/14/2024 09:55:34 Essential hypertension 68612386 I10 very impressive for his home bps and has no limitation s he still exercises 3 miles on treadmill and lifts wgts Hypercholesterolemia 136 52390 E78.00 cholestero l med no problems simveronicatadonny n will call if any sudden changes from the med Screening for malignant neoplasm of colon 197139575 Z12.11 [id number] Sanya Seay [facility] [address] [facility] [facility] [place] [address] 03/06/2025 10:15:03 03/06/2025 14:37:05 Hypercholesterolemia 21439887 E78.00 cholestero l med no problems simvastadonny n will call if any sudden changes from the med Depression screening 171 847897 Z13.31 neg Essential hypertension 38491863 I10 very impressive for his home bps and has no limitation s he still exercises 3 miles on treadmill and lifts wgts Multiple a ctinic keratoses 207465217 L57.0 689395 [id number] [facility] [address] [facility], [place] [address] 04/07/2025 10:43:16 04/07/2025 12:16:35 Depression screening [id number] Z13.31 neg Essential hypertension [id number] I10 very impressive for his home bps and has no limitation s he still exercises 3 miles on treadmill and lifts wgts Abnormal f indings on diagnostic imaging of lung [id number] R91.8 [id number] has a follow up ct chest ordered for october Neoplasm o f urinary bladder [id number] D49.4 [id number] will be getting a procedure in a few weeks [id number] Sanya Seay [facility] [address] [facility], [place] [address] 04/21/2025 13:58:26 04/21/2025 14:36:44 Pre-surgery evaluation [id number] Z01.818 Per the [facility] cardiac risk stratifica tion this patient is deemed cleared for the proposed bladder polyp/tumo r removal procedures Per the stratifica tion, he is a low risk for this procedure, pt understand s to continue his usual medication s . Depression screening [id number] Z13.31 neg Essential hypertension [id number] I10 very impressive for his home bps and has no limitation s he still exercises 3 miles on treadmill and lifts wgts Health Concerns Section Related Observation LastModified by Organization Detai ls LastModified Time None Recorded Concern Status LastModified by Organization Details LastModified Time None Recorded Advance Directives Directive None Recorded Payers Insurance Date Sequence Insurance Name Policy Number Policy Sanchez Covered Member ID Sanchez Member ID Guarantor Name 04/18/2025 1 [facility] (POS) [id number] Wil Whitlock [id number] Wil Kaywoomarie Notes Date Note Type Note Provider Name and Address Organization Details Recorded Time 05/23/20 24 text/htm l ROS as noted in the HPI here for rechk of his bp doing well overallhas had recent eval and tx for his pterygiumhad lens implanthas some macular degen on ODOS is good Sanya Seay DO [address] [place], [address], [facility] 05/23/2024 14:13:06 09/14/19 25 text/htm l ROS as noted in the HPI here ffor rechk and is doing ok overallsustained a flap tear on right hand Sanya Seay DO [address] [place], [address], [facility] 09/14/2024 09:55:18 03/06/20 25 text/htm l Care Management - HypertensionReported by PatientHPIFor self care, patient reportsnot under emotional stress. For severity, patient reportssymptoms are improvinganddoes not interfere with daily activities. For associated symptoms, patient reportsno dizziness,no lightheadedness,no chest pain,no shortness of breath,no palpitations,no edema,no calf muscle cramps,no blurred vision,no confusion,no headaches, andno fatigue. Care Management - HyperlipidemiaReported by PatientHPIFor control, patient reportsusually well controlled,improving, andat goal. For complications, patient reportsno coronary artery disease,no heart attack,no cardiovascular disease,no pancreatitis, andno stroke.ROS as noted in the HPI here for rechk doing well overall and states no cpp no sobsleep is okbowels are okappetite is good Sanya Seay DO [address] [place], [address], [facility] 03/06/2025 10:35:42 04/07/20 25 text/htm l Care Management - HypertensionReported by PatientHPIFor self care, patient reportsnot under emotional stress. For severity, patient reportssymptoms are improvinganddoes not interfere with daily activities. For associated symptoms, patient reportsno dizziness,no lightheadedness,no chest pain,no shortness of breath,no palpitations,no edema,no calf muscle cramps,no blurred vision,no confusion,no headaches, andno fatigue. episode of hematuria as noted followed by urology and is having a procedure for bladder mass has a ct chest Sanya Seay DO [address] [place] [address], [phone], [facility] 04/07/2025 11:14:44 04/21/20 25 text/htm l Care Management - HypertensionReported by PatientHPIFor self care, patient reportsnot under emotional stress. For severity, patient reportssymptoms are improvinganddoes not interfere with daily activities. For associated symptoms, patient reportsno dizziness,no lightheadedness,no chest pain,no shortness of breath,no palpitations,no edema,no calf muscle cramps,no blurred vision,no confusion,no headaches, andno fatigue. Pre-OpReported by PatientHPIFor risk factors, patient reportsno cognitive impairment,no functional impairment,no malnutrition,no frailty,able to climb a flight of stairs (exercise capacity>4 mets),no obstructive sleep apnea,non-smoker,no alcohol misuse,no illicit drug use,no chronic cardiopulmonary condition, andnot obese. For anesthesia hx, patient reportsno hx of anesthesia complications,no allergy to anesthetic agents, andno family history of anesthesia complications. For functional ability, patient reportsable to walk up stairs,able to perform heavy work around the house,no difficulty walking up hills, andable to walk 4 mph.ROS as noted in the HPI here for pre op for a bladder bx procedure due to hematuria following a colonoscopy Sanya SeayDO [address] [place] [address], [id number], [facility] 04/21/2025 14:35:53
--- OUTSIDE RECORDS SUMMARY | 2025-06-19 10:27 | XMS_ITS | Encounter Summary ---
Author Organization [facility] Address [address] [place] [address] Phone Care Team Providers Care Parts Counter Clerk Name Role Phone Sanya Barkley DO Primary Care Provider [phone] Encounter Details Date Type Department Care Team (Late st Contact Info) Description 08/30/2019 Procedure Pass [facility] Endoscopy Admitting Dept Virtual Department [address] [place] [address] Social History Tobacco Use Types Packs/Day Years [...] on filedocumented in this encounter Care Teams Parts Counter Clerk Relationship Specialty Start Date End Date Sanya Barkley DO [address] [place] [address] PCP - General 06/09/17 documented as of this encounter Additional Source Comments The information contained in this document represents components of the legal health record. It is not the complete legal health record.[facility]
--- OUTSIDE RECORDS SUMMARY | 2025-06-19 10:28 | XMS_ITS | Encounter Summary ---
Author Organization [facility] Address [address] [place] [address] Phone Care Team Providers Care Mcat Tutor Name Role Phone Sanya Barkley Primary Care Provider [phone] Encounter Details Date Type Department Care Team (Late st Contact Info) Description 03/11/2025 Procedure Pass [facility], Ct Scan - [facility] [address] [place] [address] Social History Tobacco Use Types Packs/Day Years [...] on file documented as of this encounter Functional Status * Calculated C-SSRS Risk Score (Lifetime/Recent) Answer Date of Assessment Author No Risk Indicated 03/11/2025 8:01 PM EDT Candida Barnett RN * [place] Suicide Severity Rating Scale (Screener/Recent Self-Report) Question Answer Date of Assessment Author 1. Wish to be (Past 1 Month) No 025 8:01 PM EDT Candida Barnett RN 2. Non-Specific Active Suici south Thoughts (Past 1 Month) No 03/11/2025 8:01 PM EDT Candida Barnett RN 6. Suicidal Behavior (Lifetime) No 5 8:01 PM EDT Candida Barnett RN documented as of this encounter Plan of Treatment Not on file documented as of this encounter Visit Diagnoses Not on filedocumented in this encounter Care Teams Mcat Tutor Relationship Specialty Start Date End Date Sanya Barkley DO [address] [place] [address] [email or web address] PCP - General 06/09/17 documented as of this encounter Additional Source Comments The information contained in this document represents components of the legal health record. It is not the complete legal health record.[facility]
--- OUTSIDE RECORDS SUMMARY | 2025-06-19 10:28 | XMS_ITS | Encounter Summary ---
Author Organization [facility] Address [address] [place] [address] Phone Care Team Providers Care Phonograph Needle Tip Maker Name Role Phone Sanya Barkley Primary Care Provider [phone] Encounter Details Date Type Department Care Team (Late st Contact Info) Description 09/27/2024 Procedure Pass [facility] Endoscopy Admitting Dept Virtual Department [address] [place] [address] Social History Tobacco Use Types Packs/Day Years [...] on file 12/19/2022 No 12/19/2022 No 12/19/2022 Digital Access Answer Date Recorded No 01/17/2023 No 01/17/2023 Reliable internet access at home? Not on file 01/17/2023 Device with a working camera? Not on file Intimate Partner Violence Answer Date R ecorded Are you denied basic needs s uch as food, clothing, or medical care? No 09/27/2024 In the past 12 months have y ou been in a relationship with a person who hurts, threatens, or tries to control you? No 09/27/2024 Are you denied basic needs s uch as food, clothing, or medical care? No 09/27/2024 In the past 12 months have y ou been in a relationship with a person who hurts, threatens, or tries to control you? No 09/27/2024 Sex and Gender Information Value Date Recorded Sex Assigned at Not on file Legal Sex Male 10:07 PM EDT Gender Identity Not on file Sexual Orientation Not on file documented as of this encounter Plan of Treatment Not on file documented as of this encounter Visit Diagnoses Not on filedocumented in this encounter Care Teams Phonograph Needle Tip Maker Relationship Specialty Start Date End Date Sanya Barkley DO [address] [place] [id number] [email or web address] PCP - General 06/09/17 documented as of this encounter Additional Source Comments The information contained in this document represents components of the legal health record. It is not the complete legal health record.[facility]
--- OUTSIDE RECORDS SUMMARY | 2025-06-19 10:28 | XMS_ITS | Clinical Summary ---
Author Organization [facility] Address [address] [place] [address] Phone Care Team Providers Care Combination Welder Name Role Phone Sanya Barkley DO Primary Care Provider Allergies No known active allergies Medications simvastatin (ZOCOR) 40 MG tablet simvastatin 40 mg tablet TAKE 1 TABLET BY MOUTH ONCE A DAY Active turmeric 400 mg Cap Take by mouth. Activ e multivitamin-mi nerals-lutein (CENTRUM SILVER) Tab Take 1 tablet by mouth daily. Active ascorbic acid, vitamin C, (VITAMIN C) 500 MG tablet Take 500 mg by mouth daily. Active omega 6-zlu-unk-fish oil 1,000 mg (120 mg-180 mg) Cap Take 1 capsule by mouth daily. Active grape seed extract (GRAPE SEED) 50 mg Cap Take by mouth. Active lisinopril (PRINIVIL,ZESTR IL) 20 MG tablet Take 20 mg by mouth daily. 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 05/01/2025 Hypertension 04/30/2025 Assessment & Plan (05/01/2025 7:25 AM EDT): Hyperlipidemia 04/30/2025 Assessment & Plan (05/01/2025 7:25 AM EDT): Encounters Date Type Department Care Team Description 05/30/2025 8:18 AM EDT - 05/30/2025 11:59 PM EDT Hospital Encounter [facility], [address] [address] Sanya Barkley DO Discharge Disposition: Home or Self Care 05/05/2025 Procedure Pass [address] [address] 05/05/2025 Transcribe Orders Virtual Department [address] [place] [address] Sanya Barkley DO Other nonspecific abnormal finding of lung field (Primary Dx) 05/01/2025 7:30 AM EDT - 05/01/2025 8:49 AM EDT Surgery OR Admitting Dept - Virtual Department [address] [place] [address] Boubacar Saenz MD CYSTOSCOPY FULGURATION BIOPSY BLADDER 05/01/2025 7:22 AM EDT Anesthesia Event OR Admitting Dept - Virtual Department [address] [place] [address] Geovany Gomez MD 05/01/2025 6:39 AM EDT - 05/01/2025 10:09 AM EDT Hospital Encounter OR Admitting Dept - Virtual Department [address] [place] [address] Boubacar Saenz MD Discharge Disposition: Home or Self Care 05/01/2025 Procedure Pass OR Admitting Dept - Virtual Department [address] [place] [address] 04/28/2025 8:30 AM EDT Pre-Admission Testing Pre Procedure Evaluation [address] [place] [address] Boubacar Saenz MD 04/28/2025 Orders Only [facility] Pharmacy Department Virtual Deparment [address] [place] [address] Sanya Barkley DO 04/28/2025 Transcribe Orders [facility] Pharmacy Department Virtual Deparment [address] [place] [address] Sanya Barkley DO 03/29/2025 6:09 PM EDT - 03/29/2025 11:59 PM EDT Hospital Encounter [facility], [address] [address] Boubacar Saenz MD Discharge Disposition: Home or Self Care 03/27/2025 8:16 AM EDT - 03/27/2025 11:59 PM EDT Hospital Encounter [facility] [address] [place] [address] Boubacar Saenz MD Discharge Disposition: Home or Self Care 03/27/2025 Transcribe Orders [facility] [address] [place] [address] Boubacar Saenz MD Gross hematuria (Primary Dx); Screening for prostate cancer; Personal history of malignant neoplasm of prostate 03/22/2025 Procedure Pass [facility], Ct Scan - [facility] [address] [place] [address] 03/22/2025 Transcribe Orders Virtual Department [address] [place] [address] Boubacar Saenz MD Gross hematuria (Primary Dx); Personal history of malignant neoplasm of prostate; Solitary pulmonary nodule from Last 3 Months Social History Tobacco Use Types Packs/Day Years Used Date Smoking Tobacco: Former Cigarettes Q uit: 1988 Smokeless Tobacco: Never Tobacco Cessation:Counseling Given: Not Answered Alcohol Use Standard Drinks/Week Comments Yes 14 [...] on file Sexual Orientation Not on file Last Filed Vital Signs Vital Sign Reading Time Taken Comments Blood Pressure 151/72 05/01/2025 9:00 AM EDT Pulse 86 05/01/2025 8:45 AM EDT Temperature 36 C (96.8 F) 05/01/2025 8:32 AM EDT Respiratory Rate 19 05/01/2025 8:45 AM EDT Oxygen Saturation 99% 05/01/2025 9:00 AM EDT Inhaled Oxygen Concentration - - Weight 61.2 kg (135 lb) 05/01/2025 6:50 AM EDT Height 170.2 cm (5' 7 ) 05/01/2025 6:50 AM EDT Body Mass Index 21.14 05/01/2025 6:50 AM EDT Plan of Treatment Health Maintenance Due Date Last Done Comments BLOOD PRESSURE 1945 LIPID PANEL 1945 DEPRESSION SCREENING 1959 HEPATITIS C SCREENING 1965 PNEUMOCOCCAL VACCINES (50+ years) (2 of 2 - PCV) 06/23/2015 06/23/2014, 03/04/2013 RSV VACCINE (1 - 1-dose 75+ series) 2022 INFLUENZA VACCINE (#1) 2025 , 05/14/2023, 05/10/2022, Additional history exists COVID-19 VACCINE ( season) 2025 06/14/2024, 07/27/2023, 05/23/2022, Additional history exists CREATININE LEVEL 03/11/2026 03/11/2025 POTASSIUM LEVEL 03/11/2026 03/11/2025 SMOKING Hx and SMOKELESS TOBACCO SCREENING 05/01/2026 05/01/2025 Adult Td,Tdap Booster 01/30/2031 01/30/2021, 010 ZOSTER VACCINES Completed 04/03/2025, 02/02/2025 HEPATITIS A VACCINES Aged Out No long er eligible based on patient's age to complete this topic HIB VACCINES Aged Out No longer eligi ble based on patient's age to complete this topic MENINGOCOCCAL VACCINES (ACWY) Aged Out No longer eligible based on patient's age to complete this topic MENINGOCOCCAL VACCINES (B) Aged Out N o longer eligible based on patient's age to complete this topic Medical Devices Not on file Procedures Procedure Name Priority Date/Time Associated Diagnosis Comments CT CHEST WITHOUT CONTRAST Routine 05/30/2025 8:25 AM EDT Other nonspecific abnormal finding of lung field AIRWAY PLACEMENT Routine 05/01/2025 7:31 AM EDT HI CYSTOURETHROSCOPY,B IOPSY 05/01/2025 7:25 AM EDT Bladder neoplasm of uncertain malignant potential ANATOMIC PATHOLOGY Routine 05/01/2025 12 :[address] CHEST WITH CONTRAST Routine 03/29/2025 6:20 PM EDT Gross hematuria Personal history of malignant neoplasm of prostate Solitary pulmonary nodule CBC Routine 03/27/2025 9:30 AM EDT Gross hematuria Personal history of malignant neoplasm of prostate PSA (SCREENING) Routine 03/27/2025 9:30 AM EDT Screening for prostate cancer BASIC METABOLIC PANEL STAT 03/11/2025 8:19 PM EDT from Last 3 Months or Most Recently Relevant to Health Maintenance Results * CT CHEST WITHOUT CONTRAST (05/30/2025 [...] clinician's provided indication for this examination in [facility]: Outside Radiology Order; opacity of lung on [...] clinician's provided indication for this examination in [facility]:Outside Radiology Order; opacity of lung on imaging [...] mm calcified pulmonary nodules, benign. us Sanya A Bigda DO IMG CT CHEST Final Result * ANES ETT DOUBLE LUMEN - AIRWAY LDA (05/01/2025 7:31 AM EDT) Narrative Dana Cho CRNA - 05/01/2025 7:31 AM EDT Dana Cho CRNA 05/01/2025 7:46 AM Airway Placement Procedure Note: Procedure performed by: fellow/resident/FOREST RANGER Anesthesiologist: Geovany Gomez MD Fellow/Resident/FOREST RANGER: Dana Cho CRNA Airway procedure initiated at:05/01/2025 7:31 AM and ended at. Personal Protective Equipment: Mask: surgical mask Eye Protection: eye shield Gloves: gloves Gown: no gown Mask Ventilation: Quality: not attempted Airway Placement: Technique: LMA LMA Insertion: LMA size: 4 LMA placement attempts: 1. Outcomes: Evidence of dental injury? no Complications observed? 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 No muscularis propria is present. Electronicall y Signed Out By Omaira Mccall MD By his/her signature above, the pathologist listed as making the Final Diagnosis certifies that he/she has personally reviewed this case and confirmed or corrected the diagnosis. CLINICAL HISTORY Bladder tumor SPECIMENS SUBMITTED: A: INTERIOR URINARY BLADDER BIOPSY GROSS DESCRIPTION INTERIOR URINARY BLADDER BIOPSY: Received in formalin is a 0.3 x 0.2 x 0.2 cm irregular portion of peña-pink soft tissue which is submitted in toto in a single cassette labeled A1. 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 No muscularis propria is present. [facility] Gross Description INTERIOR URINARY BLADDER BIOPSY: Received in formalin is a 0.3 x 0.2 x 0.2 cm irregular portion of peña-pink soft tissue which is submitted in toto in a single cassette labeled A1. Grossed by: CLIVE Lange PA([facility]) [facility] Conversion Type 05/01/2025 10:53 AM EDT us Boubacar Saenz MD PATHOLOGY ORDERABLES Edited Re sult - Final [facility] [address] [place] [address] * CT CHEST WITH CONTRAST (03/29/2025 6:20 PM EDT) MGB IMG RECOMMENDATION COMMENT areas of groundglass attenuation left lower lobe; bilateral solid sub-solid nodules up to 8 mm indeterminate [facility] Anatomical Region Laterality Modality Chest Computed Tomogra phy 04/03/2025 7:13 PM EDT Impressions 04/03/2025 9:02 PM EDT 1. Multiple areas of groundglass attenuation in the left lower lobe, previously more solid in appearance, likely resolving infection or inflammation. 2. Additional bilateral solid and sub-solid nodules measuring up to 8 mm are indeterminate. Chest CT follow-up is recommended. 3. Clustered nodules in the basilar right middle lobe likely related to aspiration. RECOMMENDATIONS: Chest CT follow-up in 12-18 weeks. Narrative 04/03/2025 9:[address] CHEST WITH CONTRAST Referring clinician's provided indication for this examination in Epic: Outside Radiology Order; eval the pulmonary finding on recent abd/pel CT for gross hematuria. NKA, NO ASTHMA, NO DM TECHNIQUE: Multidetector CT of the chest was performed with intravenous contrast using tailored dose modulation techniques. COMPARISON: CT ABDOMEN/PELVIS WITH CONTRAST FINDINGS: Devices/Tubes/Lines: None. Lungs: Mild diffuse bronchial wall thickening. Mild centrilobular emphysema. Multiple left lower lobe areas of groundglass attenuation, previously more solid in appearance measuring up to 2.8 cm in the lung base (5:311), with multiple additional examples in the left lower lobe measuring up to 14 mm (5:268). Additional solid and sub- solid nodules not included in the prior field of view measure up to 8 mm in the right upper lobe (5:104), with additional examples including in the left lung on 5:200, 260, 296, and the right lung on 60. Similar clustered nodules in the basilar right middle lobe (5:301). Pleura: No pleural effusion or pneumothorax. Mediastinum: No actionable thyroid gland nodules. Cardiac chambers are within normal size limits. No pericardial effusion. Aortic valve calcifications, a finding which can be associated with aortic valve stenosis. Mitral annulus calcifications. Mild amount of coronary artery calcification. Atherosclerotic calcifications of the thoracic aorta and its major branches. Four-vessel arch with the left vertebral artery arising directly from the aortic arch. Lymph Nodes: No enlarged supraclavicular, axillary, mediastinal, or hilar lymph nodes. Upper Abdomen: Atherosclerotic calcifications. New focal lesion in the partially imaged liver or kidneys. No adrenal nodules. Chest Wall: No chest wall mass. Bones: Skeletal degenerative changes including bridging vertebral osteophytes. No suspicious lytic or blastic lesions. Procedure Note Benedicto Hernandez MD - 04/03/2025 CT CHEST WITH CONTRAST Referring clinician's provided indication for this examination in Epic:Outside Radiology Order; eval the pulmonary finding on recent abd/pel CTfor gross hematuria. NKA, NO ASTHMA, NO DM TECHNIQUE: Multidetector CT of the chest was performed with intravenouscontrast using tailored dose modulation techniques. COMPARISON: CT ABDOMEN/PELVIS WITH CONTRAST FINDINGS: Devices/Tubes/Lines: None. Lungs: Mild diffuse bronchial wall thickening. Mild centrilobularemphysema. Multiple left lower lobe areas of groundglass attenuation,previously more solid in appearance measuring up to 2.8 cm in the lungbase (5:311), with multiple additional examples in the left lower lobemeasuring up to 14 mm (5:268). Additional solid and sub-solid nodules notincluded in the prior field of view measure up to 8 mm in the right upperlobe (5:104), with additional examples including in the left lung on5:200, 260, 296, and the right lung on 60. Similar clustered nodules inthe basilar right middle lobe (5:301). Pleura: No pleural effusion or pneumothorax. Mediastinum: No actionable thyroid gland nodules. Cardiac chambers arewithin normal size limits. No pericardial effusion. Aortic valvecalcifications, a finding which can be associated with aortic valvestenosis. Mitral annulus calcifications. Mild amount of coronary arterycalcification. Atherosclerotic calcifications of the thoracic aorta andits major branches. Four-vessel arch with the left vertebral arteryarising directly from the aortic arch. Lymph Nodes: No enlarged supraclavicular, axillary, mediastinal, or hilarlymph nodes. Upper Abdomen: Atherosclerotic calcifications. New focal lesion in thepartially imaged liver or kidneys. No adrenal nodules. Chest Wall: No chest wall mass. Bones: Skeletal degenerative changes including bridging vertebralosteophytes. No suspicious lytic or blastic lesions. IMPRESSION: 1. Multiple areas of groundglass attenuation in the left lower lobe,previously more solid in appearance, likely resolving infection orinflammation. 2. Additional bilateral solid and sub-solid nodules measuring up to [address] follow-up is recommended. 3. Clustered nodules in the basilar right middle lobe likely related toaspiration. RECOMMENDATIONS: Chest CT follow-up in 12-18 weeks. us Boubacar Saenz MD IMG CT CHEST Final Result * (ABNORMAL) CBC (03/27/2025 9:30 AM EDT) WBC 4.71 4.00 - 11.00 K/uL [facility] RBC 4.17(L) 4.50 - 5.90 M/uL [facility] HGB 13.2(L) 13.5 - 17.5 g/dL [facility] HCT 41.4 41.0 - 53.0 % [facility] PLT 203 150 - 450 K/uL [facility] MCV 99.3 80.0 - 100.0 fL [facility] MCH 31.7(H) 27.0 - 31.0 pg [facility] MCHC 31.9(L) 32.0 - 36.0 g/dL [facility] RDW 13.0 11.5 - 14.5 % [facility] MPV 10.9 8.4 - 12.0 fL [facility] NRBC 0.00 0.00 /100 WBCs [facility] ABSOLUTE NRBC 0.00 0.00 K/uL [facility] Blood 03/27/2025 9:30 AM EDT 03/27/2025 9:32 AM EDT Boubacar Saenz MD LAB BLOOD ORDERABLES Final Res ult [facility] [address] [place] [address] * PSA (screening) (03/27/2025 9:30 AM EDT) PSA 2.83 0 - 4.00 ng/mL [facility] Comment: Test Methodology Lucia [id number] Patient results determined by assays using different manufacturers or methods may not be comparable. Blood 03/27/2025 9:30 AM EDT 03/27/2025 9:32 AM EDT us Boubacar Saenz MD LAB BLOOD ORDERABLES Final Res ult Performing Organization Address [facility] Co de Phone Number [address] [address] * (ABNORMAL) Basic metabolic panel (03/11/2025 8:19 PM EDT) SODIUM 141 133 - 146 mmol/L [facility] CHLORIDE 105 96 - 108 mmol/L [facility] POTASSIUM 3.7 3.3 - 5.1 mmol/L [facility] Comment:Specimen slightly he molyzed, result may be falsely elevated. CO2 24 21 - 35 mmol/L [facility] BUN 30(H) 6 - 19 mg/dL [facility] CREATININE 0.90 0.5 - 1.5 mg/dL [facility] GLUCOSE 104(H) 70 - 99 mg/dL [facility] CALCIUM 9.8 8.4 - 10.3 mg/dL [facility] EGFR 87 >59 mL/min/1.7 3m2 [facility] Comment:Estimated glomerular filtration rate calculated using the CKD-EPI refit equation. ANION GAP 16 10 - 20 mmol/L [facility] Blood 03/11/2025 8:19 PM EDT 03/11/2025 8:30 PM EDT us Morris Barrera MD LAB BLOOD ORDERABLES Fin al Result Performing Organization Address [facility]/ZIP Co de Phone Number [address] [address] from Last 3 Months or Most Recently Relevant to Health Maintenance Insurance [address] [address] HEALTH PLAN HEALTH PLAN HEALTH PLAN HEALTH PLAN PLAN PLAN HEALTH PLAN PLAN PLAN Care Teams Combination Welder Relationship Specialty Start Date End Date Sanya Barkley DO [address] [place] [phone] PCP - General 06/09/17 Additional Source Comments The information contained in this document represents components of the legal health record. It is not the complete legal health record.[facility]
[2025-06-19 14:10] LABS: Prostate Specific Antigen 2.78 ng/mL (<0.05-4.0)
== END 2025-06-19 09:23 | disposition home or self-care (01) ==
LOC: HO.MANLDS 09:22
PROVIDERS: Referring Provider Internal Medicine; Visit Provider Urology
DX: Z12.5 Encounter for screening for malignant neoplasm of prostate (principal); Z85.46 Personal history of malignant neoplasm of prostate
CPT/HCPCS: 36415; 84153

== ENCOUNTER 2025-08-14 09:25 | Outpatient (REF) | payer OTHER, SELFPAY ==
--- OUTSIDE RECORDS SUMMARY | 2025-08-14 10:40 | XMS_ITS | Encounter Summary ---
Author Organization [facility] Address [address] [place] [address] Phone Care Team Providers Care Lathe Machinist Name Role Phone Sanya Barkley Primary Care Provider [phone] Encounter Details Date Type Department Care Team (Late st Contact Info) Description 03/22/2025 Procedure Pass [facility], Ct Scan - [facility] [address] [place] [address] Social History Tobacco Use Types Packs/Day Years [...] on filedocumented in this encounter Care Teams Lathe Machinist Relationship Specialty Start Date End Date Sanya Barkley DO [address] [place] [address] PCP - General 06/09/17 documented as of this encounter Additional Source Comments The information contained in this document represents components of the legal health record. It is not the complete legal health record.[facility]
--- OUTSIDE RECORDS SUMMARY | 2025-08-14 10:40 | XMS_ITS | Encounter Summary ---
Author Organization [facility] Address [address] [place] [address] Phone Care Team Providers Care Special Programs Director Name Role Phone Sanya Barkley DO Primary Care Provider [phone] Encounter Details Date Type Department Care Team ([facility] st Contact Info) Description 04/28/2025 Transcribe Orders [facility] Pharmacy Department Virtual Deparment [address] [place] [address] Sanya Barkley DO [address] [facility] [place] [address] [place] [address] [email or web address] Social History Tobacco Use Types Packs/Day Years [...] on filedocumented in this encounter Care Teams Special Programs Director Relationship Specialty Start Date End Date Sanya Barkley DO [address] [place] [address] PCP - General 06/09/17 documented as of this encounter Additional Source Comments The information contained in this document represents components of the legal health record. It is not the complete legal health record.[facility]
--- OUTSIDE RECORDS SUMMARY | 2025-08-14 10:41 | XMS_ITS | Clinical Summary ---
Author Organization [facility] Address [address] [place] [address] Phone Care Team Providers Care Coat Padder Name Role Phone Sanya Barkley DO Primary Care Provider [phone] Allergies No known active allergies Medications simvastatin (ZOCOR) 40 MG tablet simvastatin 40 mg tablet TAKE 1 TABLET BY MOUTH ONCE A DAY Active turmeric 400 mg Cap Take by mouth. Activ e multivitamin-mi nerals-lutein (CENTRUM SILVER) Tab Take 1 tablet by mouth daily. Active ascorbic acid, vitamin C, (VITAMIN C) 500 MG tablet Take 500 mg by mouth daily. Active omega 9-bjg-bto-fish oil 1,000 mg (120 mg-180 mg) Cap [...] - 05/30/2025 11:59 PM EDT Hospital Encounter [facility], Ct Scan - [facility] [address] [place] [address] Sanya Barkley, DO Discharge Disposition: Home or Self Care 05/05/2025 Procedure Pass [facility], Ct Scan [facility] [address] [place] [address] from Last 3 Months Social History Tobacco [...] Other nonspecific abnormal finding of lung field BASIC METABOLIC PANEL (BMP) STAT 03/11/2025 8:19 PM EDT from Last [...] this examination in Epic: Outside Radiology Order; opacity of lung on imaging study TECHNIQUE: Multidetector CT of the chest was performed without intravenous contrast using tailored dose modulation. COMPARISON: 03/29/25 FINDINGS: Devices/Tubes/Lines: None. Lungs: Near interval resolution of left lower lobe groundglass opacity. 8 mm groundglass opacity in the medial right upper lobe (4/), unchanged. Scattered 2-3 mm calcified nodules. Central [...] clinician's provided indication for this examination in [facility]:Outside Radiology Order; opacity of lung on imaging [...] nodules, benign. us Sanya A Bigda DO [facility] CT CHEST Final Result * (ABNORMAL) Basic metabolic panel (03/11/2025 8:19 PM EDT) SODIUM 141 133 - 146 mmol/L [facility] CHLORIDE 105 96 - 108 mmol/L [facility] POTASSIUM 3.7 3.3 - 5.1 mmol/L [facility] Comment:Specimen slightly he molyzed, result may be falsely elevated. CO2 24 21 - 35 mmol/L [facility] BUN 30(H) 6 - 19 mg/dL [facility] CREATININE 0.90 0.5 - 1.5 mg/dL [facility] GLUCOSE 104(H) 70 - 99 mg/dL [facility] CALCIUM 9.8 8.4 - 10.3 mg/dL [facility] EGFR 87 >59 mL/min/1.7 3m2 [facility] Comment:Estimated glomerular filtration rate calculated using the CKD-EPI refit equation. ANION GAP 16 10 - 20 mmol/L [facility] Blood 03/11/2025 8:19 PM EDT 03/11/2025 8:30 PM EDT us Morris Barrera MD LAB BLOOD B[place] [address] from Last 3 Months or Most Recently Relevant to Health Maintenance Insurance HEALTH PLAN HEALTH PLAN HEALTH PLAN PLAN PLAN PLAN PLAN PLAN [facility] HEALTH [facility] Care Teams Coat Padder Relationship Specialty Start Date End Date Sanya Barkley DO [address] [place] [id number] PCP - General 06/09/17 Additional Source Comments The information contained in this document represents components of the legal health record. It is not the complete legal health record.[facility]
--- OUTSIDE RECORDS SUMMARY | 2025-08-14 10:41 | XMS_ITS | Encounter Summary ---
Author Organization [facility] Address [address] [place] [address] Phone Care Team Providers Care Registered Nurse Step Down Name Role Phone Sanya Barkley Primary Care Provider [phone] Encounter Details Date Type Department Care Team (Late st Contact Info) Description 05/01/2025 Procedure Pass [place] Admitting Dept - Virtual Department [address] [place] [address] Social History Tobacco Use Types Packs/Day Years [...] on filedocumented in this encounter Care Teams Registered Nurse Step Down Relationship Specialty Start Date End Date Sanya Barkley DO [address] [place] [address] PCP - General 06/09/17 documented as of this encounter Additional Source Comments The information contained in this document represents components of the legal health record. It is not the complete legal health record.[facility]
--- OUTSIDE RECORDS SUMMARY | 2025-08-14 10:41 | XMS_ITS | Encounter Summary ---
Author Organization [facility] Address [address] [place] [id number] Phone Care Team Providers Care Electric Crane Operator Name Role Phone Sanya Barkley DO Primary Care Provider [phone] Encounter Details Date Type Department Care Team (Late st Contact Info) Description 08/03/2018 Ancillary Orders Virtual Department [address] [place] [address] Nehal Joseph PA-C [address] [place] [address] [email or web address] Pain and swelling of left [...] leg documented in this encounter Care Teams Electric Crane Operator Relationship Specialty Start Date End Date Sanya Barkley DO [address] [place] [address] [email or web address] PCP - General 06/09/17 documented as of this encounter Additional Source Comments The information contained in this document represents components of the legal health record. It is not the complete legal health record.[facility]
--- OUTSIDE RECORDS SUMMARY | 2025-08-14 10:41 | XMS_ITS | Encounter Summary ---
Author Organization [facility] Address [address] [place] [address] Phone Care Team Providers Care Movable Bulkhead Installer Name Role Phone Sanya Barkley Primary Care Provider Encounter Details Date Type Department Care Team (Late st Contact Info) Description 05/05/2025 Procedure Pass [facility], Ct Scan - [facility] [address] [place] [address] Social History Tobacco Use Types Packs/Day Years [...] on filedocumented in this encounter Care Teams Movable Bulkhead Installer Relationship Specialty Start Date End Date Sanya Barkley DO [address] [place] [address] PCP - General 06/09/17 documented as of this encounter Additional Source Comments The information contained in this document represents components of the legal health record. It is not the complete legal health record.[facility]
--- OUTSIDE RECORDS SUMMARY | 2025-08-14 10:41 | XMS_ITS | Encounter Summary ---
Author Organization [facility] Address [address] [place] [address] Phone Care Team Providers Care Medical Office Professional Instructor Name Role Phone Sanya Barkley DO Primary Care Provider [phone] Encounter Details Date Type Department Care Team ([facility] st Contact Info) Description 10/04/2018 Ancillary Orders Virtual Department [address] [place] [address] Sanya Barkley DO [address] [facility] [place] [address] [place] [address] [email or web address] Screening for AAA (abdominal aortic aneurysm); Encounter [...] evidence of abdominal aortic aneurysm. POS - [id number] Narrative 11/05/2018 8:37 AM EDT Screening study [...] evidence of abdominal aortic aneurysm. POS - [id number] us Sanya Barkley DO IMG US ABDOMEN Final Result documented in this encounter Visit Diagnoses Diagnosis Screening for AAA (abdominal aortic aneurysm) Screening for other and unspecified cardiovascular conditions Encounter for screening for cardiovascular disorders Screening for AAA (abdominal aortic aneurysm) Screening for other and unspecified cardiovascular conditions Encounter for screening for cardiovascular disorders documented in this encounter Care Teams Medical Office Professional Instructor Relationship Specialty Start Date End Date Sanya Barkley DO [address] [place] [address] PCP - General 06/09/17 documented as of this encounter Additional Source Comments The information contained in this document represents components of the legal health record. It is not the complete legal health record.[facility]
--- OUTSIDE RECORDS SUMMARY | 2025-08-14 10:41 | XMS_ITS | Data Portability ---
Author Organization [facility] Tim Internal Medicine, Telehealth Patient Home Address [address] [place] [address] Assessment Encounter Date Assessment Date Assessment LastModified by Organization Details LastModified Time 09/14/2024 09/14/2024 [id number] [place] [id number] (RECREATION COUNSELOR) MDM MODERATE MUST MEET 2 OUT OF [...] COVERED Not available 09/14/2024 09:53:31 03/06/2025 03/06/2025 [id number] [place] [id number] (RECREATION COUNSELOR) MDM MODERATE MUST MEET 2 OUT OF [...] THAT IS COVERED Not available 03/06/2025 10:30:47 08/14/2025 08/14/2025 [id number] [place] [id number] (RECREATION COUNSELOR) MDM MODERATE MUST MEET 2 OUT OF [...] EACH ELEMENT THAT IS COVERED Not available 08/14/2025 09:20:27 Plan of Treatment Reminders Order Date Submit Date Provider Last Modified By Organization Details Last Modified Time Details Appointments FOLLOW UP 15 2024 09:00A M DR SEAY Not available Not available Not available FOLLOW UP 15 2025 09:00A M DR SEAY Not available Not available Not available Lab PSA, serum or plasma 2024 025 [facility], [address] [place] [address], [place], [address], 08/14/2025 09:21:54 CMP, serum or plasma 2024 025 [facility], [address] [place] [address], [id number], 08/14/2025 09:21:54 CBC 2024 025 [facility], [address] [place] [address], [id number], 08/14/2025 09:21:53 Referral dermatolo gist referral 2024 025 arpita Prado MD, [address], [place], [address], 04/03/2025 09:21:27 gastroent erologist referral - has appt on sep [id number] arpita Farrar MD, [address] [place], [address], 09/16/2024 09:07:39 Procedures None recorded. Surgeries None recorded. Imaging None recorded. Medication Orders None recorded. Patient TargetsNo targets recorded. 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 [email or web address] (Emergency Room) [address] [place], [address], 03/12/2025 04:57:24 03/14/20 25 03/12/2025 CT, chest , w/o contr ast No observ ation record ed. [email or web address] [facility] [address], [address], 03/14/2025 10:57:45 05/08/20 25 03/29/2025 CT, chest , w/o contr ast No observ ation record ed. [facility] [address], [address], 05/08/2025 15:38:07 06/01/20 25 05/30/2025 CT, chest , w/o contr ast No observ ation record ed. rylee [facility] [address] [facility] [address], [place], [address], 06/02/2025 09:25:06 Result Notes None recorded. Problems Name Problem SNOMED Code Status Onset Date Resolution Date Notes Provider Name and Address Organization Details Recorded Time Primary erectile dysfunctio n 877676215 Active 2017 Not Available [facility] 13:57:09 Hyperchole sterolemia 07112613 Active 2017 Not Available [facility] 13:57:09 Carcinoma of prostate 415521115 Active 2017 Not Available [facility] 13:57:09 Essential hypertensi on 22353048 Active 2018 Not Available [facility] 13:57:09 Multiple actinic keratoses 337111564 Active 2021 Sanya Seay DO [address] [place] [address], [phone], [facility] 5 10:31:19 Pterygium 24183081 Active 2023 Sanya Seay DO [address] [place] [address], [phone], [facility] 4 14:03:13 Abnormal findings on diagnostic imaging of lung 940352559 Active 2024 Sanya Seay DO [address] [place] [address], [phone], [facility] 5 16:53:51 Neoplasm of urinary bladder 027156026 Active 2024 Sanya Seay DO [address] [place] [address], [address], [facility] 5 11:02:44 Problem Notes None [...] completed Not Available Not Available Not Available PreserVisio n AREDS ONE TABLET TWICE DAILY 2024 active Not Available Not Available Not Avai lable peg 3350-electr olytes 236 gram-22.74 gram-6.74 gram-5.86 gram solution TAKE DIRECTED 08/14 completed Not Available Not Available Not Available Fluad 65yr up(PF)45 mcg(15 mcgx3)/0.5 mL intramuscul ar syringe 07/28 completed Not Available Not Available Not Available Fluad 65yr up(PF)45 mcg(15 mcgx3)/0.5 mL intramuscul ar syringe 07/28 completed Not Available Not Available Not Available Fluzone High-Dose 2018- (PF) 180 mcg/0.5 mL intramuscul ar syringe 02/06 completed Not Available Not Available Not Available Fluad Quad (6 5yr up)(PF) 60 mcg (15 mcg x 4)/0.5mL IM syringe ADM 0.5ML IM UTD 08/15 completed Not Available Not Available Not Available Vitals Date Recorded Body height Body mass index (BMI) Body weight Heart rate Oxygen saturation Systolic And Diastolic Provider Name and Address Organization Details Last Updated DateTime 5 168.91 cm 22.4 kg/m2 95629.5 2 g 77 /min 98 % 142/72 mm[Hg] Gabby Valdivia [facility] 5 09:40:24 Date Recorded Body height Body mass index (BMI) Body weight Heart rate Oxygen saturation Systolic And Diastolic Provider Name and Address Organization Details Last Updated DateTime 5 168.91 cm 22.4 kg/m2 61754.5 2 g 62 /min 100 % 130/78 mm[Hg] Gabby Valdivia [facility] 5 10:19:33 Date Recorded Body height Body mass index (BMI) Body weight Oxygen saturation Heart rate Systolic And Diastolic Provider Name and Address Organization Details Last Updated DateTime 5 168.91 cm 22.2 kg/m2 89227.7 8 g 100 % 59 /min 124/72 mm[Hg] ANNIKA WINTERS [facility] 5 10:48:57 Date Recorded Body height Body mass index (BMI) Body weight Oxygen saturation Heart rate Systolic And Diastolic Provider Name and Address Organization Details Last Updated DateTime 5 168.91 cm 22.5 kg/m2 13992.6 8 g 98 % 63 /min 124/70 mm[Hg] ANNIKA SINGH [facility] 5 14:05:56 Date Recorded Body height Body mass index (BMI) Body weight Heart rate Oxygen saturation Systolic And Diastolic Provider Name and Address Organization Details Last Updated DateTime 5 168.91 cm 22.4 kg/m2 22232.8 1 g 63 /min 99 % 144/80 mm[Hg] Elaine Maritnez [facility] 5 09:01:42 Social History Question Answer Notes LastModified by Organizat ion Details LastModified Time Tobacco Smoking Status Former Smoker Danae Fidencio [facility] 07/28/2018 15:15:27 What Was The Date Of Your Most Recent Tobacco Screening? 08/14/2025 [email or web address] Information not available 08/14/2025 Sex: Unknown Functional Status Question Answer Note [...] preservative 05/24/20 21 completed Sanya Seay, DO [address] [place] [address], [place], [address], [facility] 05/25/2021 14:53:52 COVID-19, mRNA, LNP-S, PF, 30 mcg/0.3 mL dose 06/04/20 21 completed Cathy Hami [facility] 06/05/2021 08:21:07 COVID-19, mRNA, LNP-S, PF, 30 mcg/0.3 mL dose 11/24/19 22 completed Cathy Hami [facility] 11/25/2021 08:13:22 influenza, intradermal, quadrivalent, preservative free 05/10/20 22 completed Lizzie jessica [facility] 05/12/2022 08:29:41 COVID-19, mRNA, LNP-S, PF, 30 mcg/0.3 mL dose 05/23/20 22 [facility] 05/26/[facility]22 08:30:12 Influenza, split virus, quadrivalent, preservative 07/20/20 18 [facility] 07/21/2018 16:44:22 Influenza, split virus, quadrivalent, preservative 05/02/20 20 completed Sanya Seay, [address] [place] [address], [phone], [facility] 05/03/2020 14:58:58 COVID-19, mRNA, LNP-S, PF, 30 mcg/0.3 mL dose 10/31/19 21 [facility] 01/30/2021 09:05:55 COVID-19, mRNA, LNP-S, PF, 30 mcg/0.3 mL dose 11/21/19 21 [facility] 01/30/2021 09:06:02 pneumococcal polysaccharide PPV23 03/04/20 13 completed Cathy Nance [facility] 01/30/2021 09:06:21 Tdap 09/21/19 10 completed Cathy Nance [facility] 01/30/2021 09:06:33 Past Encounters Encounter ID Performer Location Encounter Start Date Encounter Closed Date Diagnosis/Indication Diagnosis SNOMED-CT Code Diagnosis ICD10 Code Diagnosis IMO Codes Diagnosis Note [id number] Sanya Seay DO [facility] [address] [facility] [address] 07/28/2018 15:08:20 07/28/2018 16:07:53 Pain of hip region 85847463 M25.559 rather thigh pain, as the joint is not affected ice/heat/ rest/ NSAIDS Hypercholesterolemia 136 92183 E78.00 will check ck in pt with statin treatment as long as normal will treat as above if elevated will change from simvastati n to crestor or pravastati n depending on the [place] [id number] Sanya Seay [facility] [address] [facility],[place] [address] 08/03/2018 14:42:58 08/03/2018 16:12:14 Hypercholesterolemia 89806918 E78.00 statin was d/c'd due to elevated cpk Muscle pain 27035996 M79 .10 left thigh pain of unknown origin ? statin he had an elevated ck, will hold statin and recheck ck in 1 month Edema of l ower extremity 147041710 R60.0 worrisome for dvt, though no apparent provoking factors [id number] Sanya Seay [facility] [address] [facility] [address] 10/04/2018 09:53:37 10/04/2018 10:22:12 Hypercholesterolemia 49422817 E78.00 will restart his cholestero l med car call if any sudden changes from the med Abdominal aortic aneurysm screening 376404315 Z13.6 Hepatitis C screening 41 7837684 Z11.59 [id number] Sanya Seay [facility] [address] [facility],[place] [address] 03/02/2019 09:19:45 03/02/2019 12:07:32 Hypercholesterolemia 95323504 E78.00 will restart his cholestero l med car call if any sudden changes from the med Carcinoma of prostate 25 2329359 C61 has been following urologist as is necessary Foot callus 535626488 L8 4 having prgressive pain to bottom of the foot [id number] Sanya Seay [facility] [address] [facility],[place] [address] 03/30/2019 15:51:25 03/30/2019 16:47:31 Essential hypertension 25492191 I10 [id number] Sanya Seay [facility] [address] [facility] [address] 04/22/2019 08:50:57 04/22/2019 09:27:40 Essential hypertension 51866656 I10 [id number] Sanya Seay [facility] [address] [facility],[place] [address] 07/06/2019 14:56:35 07/06/2019 15:20:20 Hypercholesterolemia 24868449 E78.00 restarted statin, no longer having muscle aching Essential hypertension 25749177 I10 Snoring symptoms 3097992 00 R06.83 [id number] Sanya Seay [facility] [address] [facility], [place] [address] 02/07/2020 14:12:19 02/07/2020 14:49:01 Adult health examination 980823129 Z00.00 reviewed lab and is excellent Active or passive immunization 425577926 Z23 [id number] Sanya Seay [facility] [address] [place] [address], [place] [address] 04/09/2020 10:43:12 04/09/2020 11:10:06 Localized swelling, mass and lump, neck 846698668 R22.1 will check thyroid and lymph nodes and see if anything related to that fu after results Essential hypertension 27878923 I10 BP excellent well controlled [id number] Sanya Seay [facility] [address], [place] [address] 04/20/2020 10:30:55 04/20/2020 11:15:09 Lymphadenopathy 65820961 R59.1 will treat for possible dental infection will start him on flonase for allergies as that may be the culprit as well Essential hypertension 90472674 I10 BP excellent well controlled [id number] Sanya Seay [facility] [address] [facility], [place] [address] 08/15/2020 08:51:33 08/15/2020 09:20:54 Essential hypertension 12175587 I10 very impressive for his home bps and has no limitation s exercises 3 miles on treadmill and lifts wgts Hypercholesterolemia 136 33436 E78.00 will restart his cholestero l med car call if any sudden changes from the med [id number] Sanya Seay [facility] [address] [facility] [address] 01/30/2021 09:11:11 01/30/2021 09:32:14 Hypercholesterolemia 67688924 E78.00 will restart his cholestero l med car call if any sudden changes from the med Essential hypertension 73760539 I10 very impressive for his home bps and has no limitation s exercises 3 miles on treadmill and lifts wgts Carcinoma of prostate 25 1920026 C61 has been following urologist as is necessary [id number] Sanya Seay [facility] [address] [facility] [facility] [place] [address] 07/31/2021 09:09:50 07/31/2021 09:45:33 Essential hypertension 41658085 I10 very impressive for his home bps and has no limitation s exercises 3 miles on treadmill and lifts wgts Hypercholesterolemia 136 35809 E78.00 will restart his cholestero l med car call if any sudden changes from the med Primary er ectile dysfunction 350409592 N52.9 [id number] Sanya Seay [facility] [address] [facility],[place] [address] 01/29/2022 09:25:38 01/29/2022 13:52:36 Hypercholesterolemia 07256432 E78.00 will restart his cholestero l med car call if any sudden changes from the med Essential hypertension 16409663 I10 very impressive for his home bps and has no limitation s exercises 3 miles on treadmill and lifts wgts Carcinoma of prostate 25 4626896 C61 has been following urologist as is necessary Advance care planning 71 0718770 Z71.89 Active or passive immunization 252382606 Z23 patient advised of due vaccines (tdap, pneu 13, shingles) [id number] Sanya Seay [facility] [address] [facility] [address] 07/30/2022 09:08:14 07/30/2022 10:10:26 Hypercholesterolemia 05069979 E78.00 will restart his cholestero l med will call if any sudden changes from the med Essential hypertension 50505164 I10 very impressive for his home bps and has no limitation s he still exercises 3 miles on treadmill and lifts wgts Multiple a ctinic keratoses 726106557 L57.0 [id number] Sanya Seay [facility] [address] [facility],[place] [address] 03/27/2023 07:57:24 03/27/2023 15:21:24 Hypercholesterolemia 75827406 E78.00 will restart his cholestero l med will call if any sudden changes from the med Essential hypertension 16363532 I10 very impressive for his home bps and has no limitation s he still exercises 3 miles on treadmill and lifts wgts Carcinoma of prostate 25 0206338 C61 has been following urologist as is necessary [id number] Sanya Seay [facility] [address] [facility],[place] [address] 01/19/2024 13:23:18 01/19/2024 14:36:04 Pre-surgery evaluation 345348234 Z01.818 Per the ACC cardiac risk stratifica tion this patient is deemed cleared for the proposed cataract and pterygium removal procedures pt understand s to continue his usual medication s . [id number] Sanya Seay [facility] [address] [facility] [address] 05/23/2024 08:25:39 05/23/2024 14:13:44 Essential hypertension 95881998 I10 very impressive for his home bps and has no limitation s he still exercises 3 miles on treadmill and lifts wgts Hypercholesterolemia 136 54044 E78.00 cholestero l med no problems simvastadonny n will call if any sudden changes from the med Carcinoma of prostate 25 2489171 C61 has been following urologist as is necessary but for now he is done [id number] Sanya Seay [facility] [address] [facility] [address] 09/14/2024 09:30:22 09/14/2024 09:55:34 Essential hypertension 34410980 I10 very impressive for his home bps and has no limitation s he still exercises 3 miles on treadmill and lifts wgts Hypercholesterolemia 136 29613 E78.00 cholestero l med no problems simvastati n will call if any sudden changes from the med Screening for malignant neoplasm of colon 214294577 Z12.11 [id number] Sanya Seay [facility] [address] [facility],[place] [address] 03/06/2025 10:15:03 03/06/2025 14:37:05 Hypercholesterolemia 10965826 E78.00 cholestero l med no problems shalonda eastman will call if any sudden changes from the med Depression screening 171 684149 Z13.31 neg Essential hypertension 75632796 I10 very impressive for his home bps and has no limitation s he still exercises 3 miles on treadmill and lifts wgts Multiple a ctinic keratoses 129395704 L57.0 153243 [id number] Sanya Seay [facility] [address] [facility],[place] [address] 04/07/2025 10:43:16 04/07/2025 12:16:35 Depression screening 408094932 Z13.31 neg Essential hypertension 85491336 I10 very impressive for his home bps and has no limitation s he still exercises 3 miles on treadmill and lifts wgts Abnormal f indings on diagnostic imaging of lung 510425319 R91.8 [id number] has a follow up ct chest ordered for october Neoplasm o f urinary bladder 664814087 D49.4 [id number] will be getting a procedure in a few weeks [id number] Sanya Seay [facility] [address] [facility],[place] [address] 04/21/2025 13:58:26 04/21/2025 14:36:44 Pre-surgery evaluation 371147616 Z01.818 Per the ACC cardiac risk stratifica tion this patient is deemed cleared for the proposed bladder polyp/tumo r removal procedures Per the stratifica tion, he is a low risk for this procedure, pt understand s to continue his usual medication s . Depression screening 171 166733 Z13.31 neg Essential hypertension 76939705 I10 very impressive for his home bps and has no limitation s he still exercises 3 miles on treadmill and lifts wgts [id number] Sanya Seay [facility] [address] [facility], [place] [address] 08/14/2025 08:51:21 08/14/2025 09:33:36 Depression screening 266036825 Z13.31 neg Essential hypertension 16942881 I10 very impressive for his home bps and has no limitation s he still exercises 3 miles on treadmill and lifts wgts Carcinoma of prostate 25 9918194 C61 has been following urologist as is necessary but for now he is done Health Concerns Section Related Observation LastModified by Organization Detai ls LastModified Time None Recorded Concern Status LastModified by Organization Details LastModified Time None Recorded Advance Directives Directive None Recorded Payers Insurance Date Sequence Insurance Name Policy Number Policy Sanchez Covered Member ID Sanchez Member ID Guarantor Name 08/11/2025 1 [facility] [employer] [facility] (POS) [id number] Wli Whitlock [id number] Wil Whitlock Notes Date Note Type Note Provider Name and Address Organization Details Recorded Time 09/14/19 25 text/htm l ROS as noted in the HPI here ffor rechk and is doing ok overallsustained a flap tear on right hand Sanya Seay DO [address] [place], [address], [facility] 09/14/2024 09:55:18 03/06/20 25 text/htm [...] okappetite is good Sanya Seay DO [address] [place], [address], [facility] 03/06/2025 10:35:42 04/07/20 text/htm l Care Management - HypertensionReported by PatientIFor self care, patient reportsnot under emotional stress. For severity, patient reportssymptoms are improvinganddoes not interfere with daily activities. For associated symptoms, patient reportsno dizziness,no lightheadedness,no chest pain,no shortness of breath,no palpitations,no edema,no calf muscle cramps,no blurred vision,no confusion,no headaches, andno fatigue. episode of hematuria as noted followed by urology and is having a procedure for bladder mass has a ct chest Sanya SeayDO [address] [place], [address], [facility] 04/07/2025 11:14:44 04/21/20 text/htm l Care Management - HypertensionReported by [facility] self care, patient reportsnot under emotional stress. For severity, patient reportssymptoms are improvinganddoes not interfere with daily activities. For associated symptoms, patient reportsno dizziness,no lightheadedness,no chest pain,no shortness of breath,no palpitations,no edema,no calf muscle cramps,no blurred vision,no confusion,no headaches, andno fatigue. Pre-OpReported by PatientIFor risk factors, patient reportsno cognitive impairment,no functional [...] to hematuria following a colonoscopy Sanya SeayDO [address] [place], [address], [facility] 04/21/2025 14:35:53 08/14/20 25 text/htm l Care Management - HypertensionReported by PatientHPIFor self care, patient reportsnot under emotional stress. For severity, patient reportssymptoms are improvinganddoes not interfere with daily activities. For associated symptoms, patient reportsno dizziness,no lightheadedness,no chest pain,no shortness of breath,no palpitations,no edema,no calf muscle cramps,no blurred vision,no confusion,no headaches, andno fatigue.ROS as noted in the HPI here for rechk and doing well and no major issuesrecently had a psa go from 1 to [address] urogram and PET scan for this small elevationrecc to pt to rechk psa Sanya Seay, DO [address] [facility], [place], [address], [place] [facility] 08/14/2025 09:23:15
--- OUTSIDE RECORDS SUMMARY | 2025-08-14 10:41 | XMS_ITS | Continuity of Care Document ---
Author Organization [place] - [facility], [facility] Address [address] [facility] [place] [address] [place] [address] Assessment Encounter Date Assessment Date Assessment LastModified by Organization Details LastModified Time 08/14/2025 08/14/2025 [address] [place] [address] (INSPECTOR INTEGRATED CIRCUITS) MDM MODERATE MUST MEET 2 OUT OF [...] Lab PSA, serum or plasma 2024 025 [facility], [address] [place] [address], [id number], 08/14/2025 09:21:54 CMP, serum or plasma 2024 025 [facility], [address] [place] [address], [id number], 08/14/2025 09:21:54 CBC 2024 025 [facility], [address] [place] [address], [place], [id number], 08/14/2025 09:21:53 Referral None recorded . Procedures None recorded . Surgeries None recorded . Imaging None recorded . Medication Orders None recorded . Patient TargetsNo targets recorded. Patient InstructionsNo instructions recorded. Reason for Referral None Reported. Problems Name Problem SNOMED Code Status Onset Date Resolution Date Notes Provider Name and Address Organization Details Recorded Time Primary erectile dysfunctio n 119092687 Active 2017 Not Available [facility] 13:57:09 Hyperchole sterolemia 13451885 Active 2017 Not Available [facility] 13:57:09 Carcinoma of prostate 686315176 Active 2017 Not Available [facility] 13:57:09 Essential hypertensi on 21553836 Active 2018 Not Available [facility] 13:57:09 Multiple actinic keratoses 994329930 Active 2021 Sanya Seay DO [address] [place] [address], [id number], [facility] 5 10:31:19 Pterygium 41886685 Active 2023 Sanya Seay DO [address] [place] [address], [id number], [facility] 4 14:03:13 Abnormal findings on diagnostic imaging of lung 564627095 Active 2024 Sanya Seay DO [address] [place] [address], [id number], [facility] 5 16:53:51 Neoplasm of urinary bladder 505696514 Active 2024 Sanya Seay DO [address] [place] [address], [id number], [facility] 5 11:02:44 Problem Notes [...] Updated DateTime 5 168.91 cm 22.4 kg/m2 36356.8 1 g 63 /min 99 % 144/80 mm[Hg] Elaine Martinez [facility] 5 09:01:42 Social History Question Answer Notes LastModified by Organizat ion Details LastModified Time Tobacco Smoking Status Former Smoker Danae jessica [facility] 07/28/2018 15:15:27 What Was The Date Of [...] virus, quadrivalent, preservative 05/24/20 21 completed Sanya Seay DO [address] [place] [address], [phone], [facility] 05/25/2021 14:53:52 COVID-19, mRNA, LNP-S, PF, 30 mcg/0.3 mL dose 06/04/20 21 [facility] 08:21:07 COVID-19, mRNA, LNP-S, PF, 30 mcg/0.3 mL dose 11/24/19 22 completed Cathy Nance [facility] 11/25/2021 08:13:22 influenza, intradermal, quadrivalent, preservative free 05/10/20 22 completed Lizzie Cardona [facility] 05/12/2022 08:29:41 COVID-19, mRNA, LNP-S, PF, 30 mcg/0.3 mL dose 05/23/20 22 completed Danae Nicolas [facility] 05/26/2022 08:30:12 Influenza, split virus, quadrivalent, preservative 07/20/20 18 completed Cathy Nance [facility] 07/21/2018 16:44:22 Influenza, split virus, quadrivalent, preservative 05/02/20 20 completed Sanya Seay DO [address] [place] [address], [id number], [facility] 05/03/2020 14:58:58 COVID-19, mRNA, LNP-S, PF, 30 mcg/0.3 mL dose 10/31/19 21 [facility] 01/30/2021 09:05:55 COVID-19, mRNA, LNP-S, PF, 30 mcg/0.3 mL dose 11/21/19 21 completed Cathy Nance [facility] 01/30/2021 09:06:02 pneumococcal polysaccharide PPV23 07/12/20 13 completed Cathy jessica [facility] 01/30/2021 09:06:21 Tdap 09/21/19 10 completed Cathy jessica [facility] 01/30/2021 09:06:33 Past Encounters Encounter ID Performer Location Encounter Start Date Encounter Closed Date Diagnosis/Indication Diagnosis SNOMED-CT Code Diagnosis ICD10 Code Diagnosis IMO Codes Diagnosis Note [id number] Sanya Seay DO [facility] [address] [facility] [address] 08/14/2025 08:51:21 08/14/2025 09:33:36 Depression screening 676783212 Z13.31 neg Essential hypertension 81886464 I10 very impressive for his home bps and has no limitation s he still exercises 3 miles on treadmill and lifts wgts Carcinoma of prostate 25 4010696 C61 has been following urologist as is necessary but for now he is done Health Concerns Section Related Observation LastModified by Organization Detai ls LastModified Time None Recorded Concern Status LastModified by Organization Details LastModified Time None Recorded Payers Encounter Date Sequence Insurance Name Policy Number Policy Sanchez Covered Member ID Sanchez Member ID Guarantor Name 08/14/2025 1 [facility] [employer] [facility] (POS) [id number] Wil Whitlock [id number] Wil Whitlock Notes Date Note Type Note Provider Name and Address Organization Details Recorded Time 5 text/htm l Care Management - HypertensionReported by [...] elevationrecc to pt to rechk psa Sanya Seay DO [address] [place], [address], [facility] 08/14/2025 09:23:15
--- OUTSIDE RECORDS SUMMARY | 2025-08-14 10:41 | XMS_ITS | Encounter Summary ---
Author Organization [facility] Address [address] [place] [address] Phone Care Team Providers Care Ceramic Tile Installation Helper Name Role Phone Sanya Barkley DO Primary Care Provider [phone] Encounter Details Date Type Department Care Team (Late st Contact Info) Description 08/30/2019 Procedure Pass [facility] Endoscopy Admitting Dept Virtual Department [address] [place] [address] Social History Tobacco Use Types Packs/Day Years [...] on filedocumented in this encounter Care Teams Ceramic Tile Installation Helper Relationship Specialty Start Date End Date Sanya Barkley DO [address] [facility] [place] [address] PCP - General 06/09/17 documented as of this encounter Additional Source Comments The information contained in this document represents components of the legal health record. It is not the complete legal health record.[facility]
--- OUTSIDE RECORDS SUMMARY | 2025-08-14 10:41 | XMS_ITS | Encounter Summary ---
Author Organization [facility] Address [address] [facility] [address] [place] [address] Phone Care Team Providers Care Fine Arts Packer Name Role Phone Sanya Barkley DO Primary Care Provider [phone] Encounter Details Date Type Department Care Team (Late st Contact Info) Description 04/09/2020 Ancillary Orders Virtual Department [address] [place] [address] Elena Louie PA [address] [facility] [place] [address] Neck mass Social History Tobacco Use Types [...] neck documented in this encounter Care Teams Fine Arts Packer Relationship Specialty Start Date End Date Sanya Barkley DO [address] [place] [address] [place] [address] PCP - General 06/09/17 documented as of this encounter Additional Source Comments The information contained in this document represents components of the legal health record. It is not the complete legal health record.[facility]
--- OUTSIDE RECORDS SUMMARY | 2025-08-14 10:41 | XMS_ITS | Encounter Summary ---
Author Organization [facility] Address [address] [place] [address] Phone Care Team Providers Care Vp Training Name Role Phone Sanya Barkley Primary Care Provider [phone] Encounter Details Date Type Department Care Team (Late st Contact Info) Description 03/11/2025 Procedure Pass [facility], Ct Scan - [facility] [address] [place] [address] Social History Tobacco Use Types Packs/Day Years [...] on filedocumented in this encounter Care Teams Vp Training Relationship Specialty Start Date End Date Sanya Barkley DO [address] [place] [address] PCP - General 06/09/17 documented as of this encounter Additional Source Comments The information contained in this document represents components of the legal health record. It is not the complete legal health record.[facility]
--- OUTSIDE RECORDS SUMMARY | 2025-08-14 10:41 | XMS_ITS | Encounter Summary ---
Author Organization [facility] Address [address] [place] [address] Phone Care Team Providers Care Customer Liaison Name Role Phone Sanya Barkley DO Primary Care Provider [phone] Reason for Referral * MRI/CAT Scan - Closed Specialty Diagnoses / Procedures Referred By Melvin galvan Referred To Contact Radiology Diagnoses Other nonspecific abnormal finding of lung field Procedures CT Chest CHG DIAGNOSTIC COMPUTED TOMOGRAPHY THORAX C-/C+ CHG DIAGNOSTIC COMPUTED TOMOGRAPHY THORAX W/CONTRAST CHG DIAGNOSTIC COMPUTED TOMOGRAPHY THORAX W/O CNTRST ND HALEY CT TISS CHARAC I&R W/CNCRNT CT EXAM Sanya Barkley DO [address] [facility] [place] [address] Phone: tel: fax: [email or web address] Referral ID Status Reason Start Date Expiration Date Visits Re quested Visits Authorized [id number] Closed 05/04/2025 07/03/2025 1 1 Encounter Details Date Type Department Care Team (Late st Contact Info) Description 05/05/2025 Transcribe Orders Virtual Department [address] [place] [address] Sanya Barkley DO [address] [facility] [place] [address] [email or web address] Other nonspecific abnormal finding of lung field [...] clinician's provided indication for this examination in [facility]: Outside Radiology Order; opacity of lung on [...] clinician's provided indication for this examination in [facility]:Outside Radiology Order; opacity of lung on [...] field documented in this encounter Care Teams Customer Liaison Relationship Specialty Start Date End Date Sanya Barkley DO [address] [place] [address] [email or web address] PCP - General 06/09/17 documented as of this encounter Additional Source Comments The information contained in this document represents components of the legal health record. It is not the complete legal health record.[facility]
--- OUTSIDE RECORDS SUMMARY | 2025-08-14 10:41 | XMS_ITS | Encounter Summary ---
Author Organization [facility] Address [address] [place] [address] Phone Care Team Providers Care Office Services Assistant Name Role Phone Sanya Barkley Primary Care Provider [phone] Encounter Details Date Type Department Care Team (Late st Contact Info) Description 09/27/2024 Procedure Pass [facility]oscopy Admitting Dept Virtual Department [address] [place] [address] Social History Tobacco Use Types Packs/Day Years [...] on filedocumented in this encounter Care Teams Office Services Assistant Relationship Specialty Start Date End Date Sanya Barkley DO [address] [place] [address] [email or web address] PCP - General 06/09/17 documented as of this encounter Additional Source Comments The information contained in this document represents components of the legal health record. It is not the complete legal health record.[facility]
--- OUTSIDE RECORDS SUMMARY | 2025-08-14 10:41 | XMS_ITS | Encounter Summary ---
Author Organization [facility] Address [address] [place] [address] Phone Care Team Providers Care Supervisor Airplane Flight Attendant Name Role Phone Sanya Barkley Primary Care Provider [phone] Encounter Details Date Type Department Care Team (Late st Contact Info) Description 04/12/2020 Ancillary Orders Virtual Department [address] [place] [address] Elena Louie PA [address] [facility] [place] [address] [place] [address] Neck mass Social History Tobacco Use Types [...] neck documented in this encounter Care Teams Supervisor Airplane Flight Attendant Relationship Specialty Start Date End Date Sanya Barkley DO [address] [place] [address] PCP - General 06/09/17 documented as of this encounter Additional Source Comments The information contained in this document represents components of the legal health record. It is not the complete legal health record.[facility]
[2025-08-14 13:49] LABS: MANUAL DIFF FLAG NO
[2025-08-14 13:52] LABS: Hematocrit 43.4 % (42.0-52.0); Hemoglobin 14.2 g/dl (14.0-18.0); Imm Gran Abs Auto 0.01 X10*3/uL (0.00-0.03); Imm Gran Pct Auto 0.3 % (0.0-0.4); Lymphocytes Absolute Auto 1.0 X10*3/uL (1.2-4.9); Mean Corpuscular HGB Conc 32.7 g/dl (31.0-36.0); Mean Corpuscular Hemoglobin 31.1 pg (27.0-33.0); Mean Corpuscular Volume 95.0 fL (80.0-98.0); NRBC Abs Auto 0.000 X10*3/uL (0.0-0.012); NRBC Pct Auto 0.0 /100WBC (0.0-0.2); Platelet Count 201 X10*3/uL (160-400); Red Blood Count 4.57 X10*6/uL (4.60-5.80); White Blood Count 4.0 X10*3/uL (4.8-10.8)
[2025-08-14 14:34] LABS: Alanine Aminotransferase 25 U/L (0-40); Albumin Level 4.2 g/dL (3.5-5.0); Alkaline Phosphatase 65 U/L (39-117); Anion Gap 12 (12-20); Aspartate Amino Transferase 33 U/L (5-37); Blood Urea Nitrogen 10 mg/dL (9-16); Calcium 9.4 mg/dL (8.4-10.2); Carbon Dioxide 27 mmol/L (22-29); Chloride 109 mmol/L (96-108); Estimated Glomerular Filt Rate > 60; Potassium 4.2 mmol/L (3.3-5.1); Sodium 144 mmol/L (135-145); Total Protein 6.6 g/dL (6.5-8.0)
[2025-08-14 15:02] LABS: Prostate Specific Antigen 3.36 ng/mL (<0.05-4.0)
== END 2025-08-14 09:26 | disposition home or self-care (01) ==
LOC: HO.MANLDS 09:25
PROVIDERS: Visit Provider Internal Medicine
DX: I10 Essential (primary) hypertension (principal); C61 Malignant neoplasm of prostate; Z12.5 Encounter for screening for malignant neoplasm of prostate
CPT/HCPCS: 36415; 80053; 84153; 85025